=== PATIENT | female | born 1950 | race Caucasian/White ===

== ENCOUNTER 2022-12-26 16:28 | Inpatient (IN) | payer MEDICARE, BC, SELFPAY ==
[2022-12-26] VITALS (7 sets, daily range): BP systolic 126–156; BP diastolic 75–87; PULSE 82–90; RESP 18–24; TEMP 35.6–37.1; O2SAT 89–94; BMI 39.5; BMI 40.8
--- NOTE | 2022-12-26 17:06 | CRLHL7_ITS ---
For Patients: As a result of the Cures Act, medical imaging exams and procedure reports are released immediately into your electronic medical record. You may view this report before your referring provider. If you have questions, please contact your health care provider. INDICATION: pneumonia; cough; hypoxia TECHNIQUE: Chest 1 views. COMPARISON: None. FINDINGS: Lungs: Elevation of the right hemidiaphragm. Patchy bilateral airspace disease with left upper lung zone and right perihilar predominance. Vascular redistribution and indistinctness. Pleura: No pleural effusion or pneumothorax. Heart and Mediastinum: Normal heart size. Atherosclerotic aorta. Bones: No acute displaced osseous process. IMPRESSION: Patchy bilateral airspace disease with left upper lung zone and right perihilar predominance. Vascular redistribution and indistinctness. Given clinical history, findings are most concerning for multifocal infection. Superimposed edema is also considered within the differential. Recommend follow-up PA and lateral chest radiographs in 8 weeks after appropriate therapy to document resolution. Dictated by Sampson Villarreal MD @ 12/26/2022 6:17:59 PM (Electronically Signed)
--- NOTE | 2022-12-26 17:08 | ED.GENADULT ---
HPI - General Adult General Chief complaint: Shortness of Breath/Dyspnea Stated complaint: Pneumonia Time Seen by Provider: 12/26/22 16:48 History of Present Illness HPI narrative: This 72-year-old female comes in reporting a recent hospitalization because of pneumonia. She was admitted into [facility] in [place] and discharged 3 days ago. She was sent home on Augmentin. She states that this is causing GI upset. She did take a dose this morning. She presented back to a clinic and a repeat x-ray apparently showed another area of infiltrate. The patient states that she is on oxygen at home but has been hypoxic with associated confusion at times. She arrives here with oximetry at 94% with oxygen by nasal cannula. She is afebrile and pulse is in normal range. Related Data Home Medications Medication Instructions Recorded Confirmed albuterol sulfate 90 mcg/actuation 2 puff inhalation Q6H PRN dyspnea 12/26/22 12/26/22 aerosol inhaler (Ventolin HFA) amlodipine 5 mg tablet 5 mg PO Q12H 12/26/22 12/26/22 amoxicillin 875 mg-potassium 1 tab PO BID 12/26/22 12/26/22 clavulanate 125 mg tablet azithromycin 250 mg tablet 250 mg PO DIRECTED 12/26/22 12/26/22 bupropion HCl 100 mg tablet 100 mg PO BID 12/26/22 12/26/22 clonazepam 0.5 mg tablet 1 - 1.5 mg PO QPM PRN muscle spasm 12/26/22 12/26/22 clopidogrel 75 mg tablet 75 mg PO DAILY 12/26/22 12/26/22 fluoxetine 40 mg capsule 40 mg PO DAILY 12/26/22 12/26/22 hydromorphone (PF)-0.9 % NaCl .ROUTE 12/26/22 hydroxyzine HCl 25 mg tablet 25 mg PO Q6H PRN itch 12/26/22 12/26/22 ipratropium 0.5 mg-albuterol 3 mg 1 inhalation Q6H wheezing 12/26/22 (2.5 mg base)/3 mL nebulization soln levothyroxine 150 mcg tablet mcg PO 12/26/22 rosuvastatin 5 mg tablet 5 mg PO DAILY 12/26/22 12/26/22 Allergies Allergy/AdvReac Type Severity Reaction Status Date / Time capsaicin Allergy Mild Wheezing Verified 12/26/22 17:08 clindamycin Allergy Mild Nausea Verified 12/26/22 17:08 celecoxib Allergy Unknown Verified 12/26/22 17:08 levofloxacin Allergy Unknown Verified 12/26/22 17:08 duloxetine Allergy Mild Rash Uncoded 12/26/22 17:08 gabapentin Allergy Mild Hives Uncoded 12/26/22 17:08 latex Allergy Mild contact Uncoded 12/26/22 17:08 dermititis Adhesive Allergy Unknown Uncoded 12/26/22 17:08 carbamazepine Allergy Unknown Uncoded 12/26/22 17:08 cefuroxime Allergy Unknown Uncoded 12/26/22 17:08 ciprofloxacin Allergy Unknown Uncoded 12/26/22 17:08 citalopram Allergy Unknown Uncoded 12/26/22 17:08 levetiracetam Allergy Unknown Uncoded 12/26/22 17:08 methadone Allergy Unknown Uncoded 12/26/22 17:08 Review of Systems Status of ROS: Reports: 10 or more systems reviewed and unremarkable except as noted in History and below Narrative: Constitutional: No fevers, no weight gain or loss. Eyes: No discharge. No vision changes. HENT: No congestion, no sore throat, no ear pain. Cardiovascular: No chest pain, no palpitations. Respiratory: Cough. Shortness of breath. Gastrointestinal: No abdominal pain, no vomiting, no diarrhea. Genitourinary: No dysuria, no hematuria. Musculoskeletal: Normal range of motion. Skin: No rashes, no pruritis. Neurological: No dizziness, weakness, sensory change, speech change. Endo/Heme/Allergies: No bruising or bleeding. No polydipsia. Pysch: no suicidality, no anxiety, no insomnia. All other systems reviewed and are negative. [facility] Medical History (Updated 12/26/22 @ 18:59 by iCsco Barry MD) Postsurgical hypothyroidism ?E89.0 - Postprocedural hypothyroidism (ICD-10) Osteoarthritis ?M19.90 - Unspecified osteoarthritis, unspecified site (ICD-10) Obesity ?E66.9 - Obesity, unspecified (ICD-10) Myalgia and myositis HTN (hypertension) ?I10 - Essential (primary) hypertension (ICD-10) Esophageal reflux ?K21.9 - Gastro-esophageal reflux disease without esophagitis (ICD-10) Endocrine disorder ?E34.9 - Endocrine disorder, unspecified (ICD-10) Diabetic neuropathy, type II diabetes mellitus ?E11.40 - Type 2 diabetes mellitus with diabetic neuropathy, unspecified (ICD-10) Depression ?F32.A - Depression, unspecified (ICD-10) COPD (chronic obstructive pulmonary disease) ?J44.9 - Chronic obstructive pulmonary disease, unspecified (ICD-10) Asthma ?J45.909 - Unspecified asthma, uncomplicated (ICD-10) Surgical History (Updated 12/26/22 @ 17:24 by Orly Yoon RN) H/O gastric bypass ?Z98.84 - Bariatric surgery status (ICD-10) History of cholecystectomy ?Z90.49 - Acquired absence of other specified parts of digestive tract (ICD-10) H/O arthroscopic knee surgery ?Z98.890 - Other specified postprocedural states (ICD-10) Social History Smoking Status: Former smoker What tobacco products do you use: cigarettes Smoking quit date/years: >15 years ago How often do you have a drink containing alcohol: never AUDIT-C Alcohol total score: 0 Non-prescribed substance use: denies use service: No Exam Narrative: Exam Narrative: Constitutional: Well-developed, well-nourished, no acute distress. HEENT: Normocephalic, atraumatic. Neck: Normal range of motion. Nontender. Supple. Heart: Regular. No murmurs. Normal rate. Intact distal pulses. Lungs: Clear to auscultation. No chest discomfort. No wheezes, rhonchi, or rales. Normal oximetry while on nasal cannula oxygen. No use of accessory muscles for breathing. Abdomen: Normal bowel sounds. Nontender. No rebound tenderness. Genitalia: Deferred. Back: No midline tenderness. Normal range of motion. Extremities: Normal range of motion. No injury. Skin: Intact. No rash. Warm. No erythema or pallor. Neurologic: No altered sensation. No weakness. Alert and oriented. Psychiatric: No suicidality. No anxiety or depression. No insomnia. Nursing notes and vitals signs are reviewed. Const: Vital Signs, click to edit/add: Vital Signs - 24 hr 12/26/22 16:32 12/26/22 18:19 12/26/22 18:30 Temperature 96.1 F L Pulse Rate 89 89 Pulse Rate [Right Pulse Oximeter] 90 Respiratory Rate 24 Blood Pressure [Ri ght Upper Arm] 156/77 H Pulse Oximetry 94 92 91 Oxygen Delivery Me thod Nasal Cannula Oxygen Flow Rate 12/26/22 18:31 Temperature Pulse Rate Pulse Rate [Right Pulse Oximeter] Respiratory Rate Blood Pressure [Ri ght Upper Arm] Pulse Oximetry 89 Oxygen Delivery Me thod Nasal Cannula Oxygen Flow Rate 3 Course Vital Signs Vital signs: Initial Vital Signs Temperature 96.1 F L 12/26/22 16:32 Temperature Source Temporal Artery Scan 12/26/22 16:32 Pulse Rate 90 12/26/22 16:32 Respiratory Rate 24 12/26/22 16:32 Blood Pressure 156/77 H 12/26/22 16:32 Blood Pressure Mean 103 12/26/22 16:32 Blood Pressure Position Sitting 12/26/22 16:32 Pulse Oximetry 94 12/26/22 16:32 Oxygen Delivery Method Nasal Cannula 12/26/22 16:32 Vital Signs Temperature 96.1 F L 12/26/22 16:32 Pulse Rate 90 12/26/22 16:32 Respiratory Rate 24 12/26/22 16:32 Blood Pressure 156/77 H 12/26/22 16:32 Pulse Oximetry 94 12/26/22 16:32 Oxygen Delivery Method Nasal Cannula 12/26/22 16:32 Temperature 96.1 F L 12/26/22 16:32 Pulse Rate 89 12/26/22 18:30 Respiratory Rate 24 12/26/22 16:32 Blood Pressure 156/77 H 12/26/22 16:32 Pulse Oximetry 89 12/26/22 18:31 Oxygen Delivery Method Nasal Cannula 12/26/22 18:31 Oxygen Flow Rate 3 12/26/22 18:31 Medical Decision Making MDM Narrative Medical decision making narrative: This 72-year-old female has multifocal infiltrates suspicious for pneumonia. She was hospitalized and discharged toward the end of this past week. Since then she has been taking Augmentin which is not sit well with her GI tract. Chest x-ray today does show multifocal infiltrates. She is on nasal cannula oxygen and at 3 L was noted to have oximetry at 89%. She does use oxygen at home but states that at night it comes off and then she becomes very confused. Her white count is normal today. Her vital signs were not triggering SIRS criteria to do septic workup. I did draw blood cultures. The patient did receive an IV dose of Zosyn. I spoke with the hospitalist stock control clerk, Dr. Mcclelland, who will arrange for her admission. Lab Data Labs: Lab Results 12/26/22 Range/Units 17:45 WBC 8.18 (4.50-11.00) K/uL RBC 4.16 (4.00-5.20) m/uL Hgb 11.3 L (12.0-16.0) gm/dL Hct 35.8 (33.0-51.0) % MCV 86 (80-100) fL MCH 27 (26-34) pg MCHC 32 (32-36) gm/dL RDW Coeff of Joey 13.8 (11.5-15.5) % Plt Count 201 (140-440) K/uL Neut % (Auto) 73.4 H (42.0-72.0) % Lymph % (Auto) 17.1 L (20-44) % [place] % (Auto) 7.9 (0.0-11.0) % Eos % (Auto) 1.0 (0.0-7.0) % Baso % (Auto) 0.5 (0.0-3.0) % Neut # (Auto) 6.00 (1.7-7.0) K/uL Lymph # (Auto) 1.40 (0.90-2.90) K/uL [place] # (Auto) 0.60 (0.00-0.90) K/UL Eos # (Auto) 0.08 (0.00-0.50) K/uL Baso # (Auto) 0.04 (0.00-0.30) K/uL Sodium 133 L (135-149) mmol/L Potassium 3.6 (3.6-5.1) mmol/L Chloride 95 L (96-114) mmol/L Carbon Dioxide 34 H (20-32) mmol/L BUN 7 (7-30) mg/dL Creatinine 0.5 (0.5-1.5) mg/dL Estimated Creat Clear 52.05 Estimated GFR 100 ml/min Glucose 116 H (60-115) mg/dL Calcium 8.9 (8.4-10.6) mg/dL Imaging Data Chest x-ray: Radiologist's impression: Patchy bilateral airspace disease with left upper lung zone and right perihilar predominance. Vascular redistribution and indistinctness. Given clinical history, findings are most concerning for multifocal infection. Superimposed edema is also considered within the differential. Recommend follow-up PA and lateral chest radiographs in 8 weeks after appropriate therapy to document resolution. ECG Data Attestation: I personally reviewed and interpreted this ECG as follows: Interpretation: Normal sinus rhythm. Rate is 86 beats per minute. There are no ST or T-wave abnormalities. Discharge Plan Discharge Clinical Impression: Pneumonia Prescriptions: No Action fluoxetine 40 mg capsule 40 mg PO DAILY ipratropium-albuterol 0.5 mg-3 mg(2.5 mg base)/3 mL solution for nebulization 1 INHALATION Q6H azithromycin 250 mg tablet 250 mg PO DIRECTED clonazepam 0.5 mg tablet 1 - 1.5 mg PO QPM PRN (Reason: muscle spasm) clopidogrel 75 mg tablet 75 mg PO DAILY amlodipine 5 mg tablet 5 mg PO Q12H bupropion HCl 100 mg tablet 100 mg PO BID levothyroxine 150 mcg tablet PO hydroxyzine HCl 25 mg tablet 25 mg PO Q6H PRN (Reason: itch) albuterol sulfate [Ventolin HFA] 90 mcg/actuation HFA aerosol inhaler 2 puff inhalation Q6H PRN (Reason: dyspnea) amoxicillin-pot clavulanate 875-125 mg tablet 1 tab PO BID rosuvastatin 5 mg tablet 5 mg PO DAILY hydromorphone (PF)-0.9 % NaCl .ROUTE Patient Comments: continuous infusion and has marcan mixed with hydromorphine Follow Up/Referrals: Eleanor Hanley MD [Staff Physician] -
[2022-12-26 18:01] LABS: Basophils Absolute Auto 0.04 K/uL (0.00-0.30); Basophils Percent Auto 0.5 % (0.0-3.0); Eosinophils Absolute Auto 0.08 K/uL (0.00-0.50); Hematocrit 35.8 % (33.0-51.0); Hemoglobin* 11.3 gm/dL (12.0-16.0); Immature Granulocytes Abs Auto 0.01 K/uL (0.00-0.30); Immature Granulocytes Pct Auto 0.1 %; Lymphocytes Percent Auto 17.1 % (20-44); Mean Corpuscular HGB Conc 32 gm/dL (32-36); Mean Corpuscular Hemoglobin 27 pg (26-34); Mean Corpuscular Volume 86 fL (80-100); Monocytes Percent Auto 7.9 % (0.0-11.0); Neutrophils Percent Auto 73.4 % (42.0-72.0); Platelet Count* 201 K/uL (140-440); RDW Coefficient of Variation % 13.8 % (11.5-15.5); Red Blood Count 4.16 m/uL (4.00-5.20); White Blood Count* 8.18 K/uL (4.50-11.00)
[2022-12-26 18:03] LABS: Slide Review Reflex No
[2022-12-26 18:17] LABS: Chloride* 95 mmol/L (96-114); Potassium* 3.6 mmol/L (3.6-5.1); Sodium* 133 mmol/L (135-149)
[2022-12-26 18:19] LABS: Creatinine* 0.5 mg/dL (0.5-1.5); Est. Creatinine Clearance* 52.05; Estimated Glomerular Filt Rate 100 ml/min
[2022-12-26 18:20] LABS: Blood Urea Nitrogen* 7 mg/dL (7-30); Calcium* 8.9 mg/dL (8.4-10.6); Carbon Dioxide* 34 mmol/L (20-32); Glucose* 116 mg/dL (60-115)
[2022-12-26] MEDS: PIPERACILLIN/TAZOBACTAM 3.375 GM in 0.9 % SODIUM CHLORIDE Mini-bag 100 ML IVPB (19:26)
[2022-12-26] MEDS: ONDANSETRON 2 MG/ML inj 4 MG IVP (19:26)
[2022-12-26 19:42] LABS: Lab Add On Test New Spec Needed
[2022-12-26 19:56] LABS: HCO3 VBG 34 mmol/L (21-28); PCO2 VBG 54 mmHG (40-50); PO2 VBG 30.4 mmHG (25-47); pH VBG 7.399 (7.32-7.43)
[2022-12-26 20:34] LABS: Procalcitonin* 0.09 ng/mL (<0.50)
--- NOTE | 2022-12-26 21:15 | PM.IMHP1 ---
Hospitalist- H&P: HPI History of Present Illness Date Seen: 12/26/22 Chief complaint: Pneumonia Narrative: Aura Joe is a 72 year old female who presented to the emergency room for persistent illness. Patient was hospitalized at [facility] from 12/01-12/06 for a right-sided pneumonia, never feels that she fully recovered from this upon discharge home. Over the past 7-10 days, she has noted persistent cough and weakness. She was seeing approximately 4 days ago and placed on Augmentin, unsure if this is helpful (and causing GI distress). Using nebs with relief. She has continued to have intermittent sputum production, no hemoptysis. No chest pain. No objective fevers, although she has noted intermittent diaphoresis. Last night, she noted an oxygen saturation in the high 70s%; she then put on her home oxygen (typically uses sparingly). Today, she was seen at an urgent care and Azithromycin was added to her regimen; she felt that she was unable to tolerate GI affects for further p.o. antibiotics and presented to our emergency room. ER Course and Findings: - no acute abnormalities on EKG - patchy bilateral airspace disease with left upper lung zone and right perihilar predominant, most concerning for multifocal infection - reassuring labs, including normal procalcitonin - Zosyn initiated Patient's history updated below. Notably has a history of COPD on chart review; patient does not believe she has this diagnosis. She is scheduled to see Pulmonology in the future. PCP is Dr. Adin Salazar at [facility] in [place]. Review of Systems Status of ROS: Reports: 10 or more systems reviewed and unremarkable except as noted in History and below Narrative: - no sick contacts - weight has been stable - intrathecal pump in place for Dilaudid administration, unsure if this is helpful. Sees [facility] in [place] for this medication in addition to Oxycodone (120-150 tabs/month) - history of CVA in approximately 2020; residual R sided facial droop - uses a cane for ambulation at home, has a hoveround for longer distances - no skin concerns - no GI concerns, typically alternates between constipation and diarrhea given chronic narcotic use - history of recurrent UTIs in the past; resolved with daily probiotic and cranberry supplementation [facility] Medical History (Updated 12/26/22 @ 21:42 by Bebe Mcclelland MD) Hypothyroidism ?E03.9 - Hypothyroidism, unspecified (ICD-10) Non-insulin dependent diabetes mellitus Chronic pain syndrome ?G89.4 - Chronic pain syndrome (ICD-10) Postsurgical hypothyroidism ?E89.0 - Postprocedural hypothyroidism (ICD-10) Osteoarthritis ?M19.90 - Unspecified osteoarthritis, unspecified site (ICD-10) Obesity ?E66.9 - Obesity, unspecified (ICD-10) Myalgia and myositis HTN (hypertension) ?I10 - Essential (primary) hypertension (ICD-10) Esophageal reflux ?K21.9 - Gastro-esophageal reflux disease without esophagitis (ICD-10) Endocrine disorder ?E34.9 - Endocrine disorder, unspecified (ICD-10) Diabetic neuropathy, type II diabetes mellitus ?E11.40 - Type 2 diabetes mellitus with diabetic neuropathy, unspecified (ICD-10) Depression ?F32.A - Depression, unspecified (ICD-10) COPD (chronic obstructive pulmonary disease) ?J44.9 - Chronic obstructive pulmonary disease, unspecified (ICD-10) Asthma ?J45.909 - Unspecified asthma, uncomplicated (ICD-10) Surgical History (Updated 12/26/22 @ 19:38 by Bebe Mcclelland MD) H/O: hysterectomy ?Z90.710 - Acquired absence of both cervix and uterus (ICD-10) H/O gastric bypass ?Z98.84 - Bariatric surgery status (ICD-10) History of cholecystectomy ?Z90.49 - Acquired absence of other specified parts of digestive tract (ICD-10) H/O arthroscopic knee surgery ?Z98.890 - Other specified postprocedural states (ICD-10) Social History (Updated 12/26/22 @ 21:33 by Bebe Mcclelland MD) Narrative: Patient lives with her Alejandro (medical decision maker) in [place]. 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 Quit smoking in approximately 1999, no concerning alcohol use. What is your current living situation: I presently have a place to live Problems where you live: no known problems Problems where you live details: NONE In the past 12 months, utilities in danger of being shut off: no In the past 12 mos, have been you worried that your food would run out before you had money to buy more?: never true In the past 12 mos, the food you bought just didn't last and you didn't have money to buy more?: never true Highest level of school completed/degree received: Associate degree: academic program Smoking Status: Former smoker What tobacco products do you use: cigarettes Smoking quit date/years: >15 years ago How often do you have a drink containing alcohol: never AUDIT-C Alcohol total score: 0 Non-prescribed substance use: denies use Caffeine: Yes (COUPLE CUPS COFFEE) How often does anyone, including family, friends and others, physically hurt you: How often does anyone, including family, friends and others, insult or talk down to you: How often does anyone, including family, friends and others, threaten you with harm: How often does anyone, including family, friends and others, scream or curse at you: service: No Meds Home Medications and Allergies Home Medications Medication Instructions Recorded Confirmed Type albuterol sulfate 90 mcg/actuation 2 puff inhalation Q6H PRN dyspnea 12/26/22 12/26/22 History aerosol inhaler (Ventolin HFA) amlodipine 5 mg tablet 5 mg PO Q12H 12/26/22 12/26/22 History amoxicillin 875 mg-potassium 1 tab PO BID 12/26/22 12/26/22 History clavulanate 125 mg tablet azithromycin 250 mg tablet 250 mg PO DIRECTED 12/26/22 12/26/22 History bupropion HCl 100 mg tablet 100 mg PO BID 12/26/22 12/26/22 History clonazepam 0.5 mg tablet 1 - 1.5 mg PO QPM PRN muscle spasm 12/26/22 12/26/22 History clopidogrel 75 mg tablet 75 mg PO DAILY 12/26/22 12/26/22 History famotidine 40 mg tablet 40 mg PO DAILY 12/26/22 12/26/22 History fluoxetine 40 mg capsule 40 mg PO DAILY 12/26/22 12/26/22 History hydromorphone (PF)-0.9 % NaCl .ROUTE 12/26/22 History hydroxyzine HCl 25 mg tablet 25 mg PO Q6H PRN itch 12/26/22 12/26/22 History ipratropium 0.5 mg-albuterol 3 mg 1.5 ml inhalation Q6H wheezing 12/26/22 12/26/22 History (2.5 mg base)/3 mL nebulization soln levothyroxine 150 mcg tablet 150 mcg PO DAILY 12/26/22 12/26/22 History oxycodone 10 mg tablet 5 - 10 mg PO Q4-6H PRN 12/26/22 12/26/22 History rosuvastatin 5 mg tablet 5 mg PO DAILY 12/26/22 12/26/22 History Home Medication Comments: Updated with patient - on Plavix for CVA history Allergies Allergy/AdvReac Type Severity Reaction Status Date / Time capsaicin Allergy Mild Wheezing Verified 12/26/22 17:08 clindamycin Allergy Mild Nausea Verified 12/26/22 17:08 celecoxib Allergy Unknown Verified 12/26/22 17:08 levofloxacin Allergy Unknown Verified 12/26/22 17:08 duloxetine Allergy Mild Rash Uncoded 12/26/22 17:08 gabapentin Allergy Mild Hives Uncoded 12/26/22 17:08 latex Allergy Mild contact Uncoded 12/26/22 17:08 dermititis Adhesive Allergy Unknown Uncoded 12/26/22 17:08 carbamazepine Allergy Unknown Uncoded 12/26/22 17:08 cefuroxime Allergy Unknown Uncoded 12/26/22 17:08 ciprofloxacin Allergy Unknown Uncoded 12/26/22 17:08 citalopram Allergy Unknown Uncoded 12/26/22 17:08 levetiracetam Allergy Unknown Uncoded 12/26/22 17:08 methadone Allergy Unknown Uncoded 12/26/22 17:08 Exam Narrative: Exam Narrative: GEN: Alert and oriented, answering questions appropriately HEENT: EOMIs bilaterally, no scleral icterus. Edentulous, + thrush CV: RRR, + holosystolic murmur heard across precordium R: Expiratory wheezing throughout, intermittent coughing paroxysms during exam Ext: 2+ edema BLE Skin: Scattered bruising of lower extremities Neuro: Mild right facial droop noted, no resting tremor, gait not observed Psych: Appropriate Const: Vital Signs, click to edit/add: Vital Signs - 24 hr 12/26/22 16:32 12/26/22 18:19 12/26/22 18:30 Temperature 96.1 F L Pulse Rate 89 89 Pulse Rate [Left R adial] Pulse Rate [Right Pulse Oximeter] 90 Respiratory Rate 24 Blood Pressure [Le ft Arm] Blood Pressure [Ri ght Upper Arm] 156/77 H Pulse Oximetry 94 92 91 Oxygen Delivery Me thod Nasal Cannula Oxygen Flow Rate 12/26/22 18:31 12/26/22 20:14 12/26/22 20:14 Temperature 98.7 F Pulse Rate Pulse Rate [Left R adial] 90 Pulse Rate [Right Pulse Oximeter] Respiratory Rate 24 24 Blood Pressure [Le ft Arm] 126/75 Blood Pressure [Ri ght Upper Arm] Pulse Oximetry 89 94 94 Oxygen Delivery Me thod Nasal Cannula Nasal Cannula Nasal Cannula Oxygen Flow Rate 3 3 3 Hospitalist - H&P: Result Labs Labs: Short CBC 12/26/22 Range/Units 17:45 WBC 8.18 (4.50-11.00) K/uL Hgb 11.3 L (12.0-16.0) gm/dL Hct 35.8 (33.0-51.0) % Plt Count 201 (140-440) K/uL BMP 12/26/22 17:45 Sodium 133 L Potassium 3.6 Chloride 95 L Carbon Dioxide 34 H BUN 7 Creatinine 0.5 Glucose 116 H Calcium 8.9 Assessment and Plan Assessment and plan (1) Acute respiratory failure with hypoxia: Problem comment: - multifactorial: PNA, COPD exacerbation, possible CHF - Zosyn, steroids, nebs, TTE to assess LVEF - RT referral - given elevated CO2, will utilize supplemental oxygen and take care to not worsen hypercarbia with goal O2 saturation 88-90% Status: Acute (2) Pneumonia: Problem comment: - appears to be multifocal on ED imaging. Procalcitonin within normal limits, reassuring - given recent hospitalization, will cover with Zosyn (12/26) Status: Acute (3) Thrush: Problem comment: - multiple recent antibiotics, no history of immunosuppression - treat with Nystatin swish/swallow Status: Acute (4) COPD (chronic obstructive pulmonary disease): Problem comment: - Patient unsure if this is a true diagnosis; has outpatient pulmonology follow-up scheduled - will treat with steroids and nebs given wheezing on admission Status: Acute (5) Chronic pain syndrome: Problem comment: - on Dilaudid via intrathecal pain pump and QID Oxycodone - follows with [facility] in [place] Status: Acute (6) Non-insulin dependent diabetes mellitus: Problem comment: - last A1C 5.7 in 11/2022 - follow BG in morning labs, prn accuchecks for symptoms of hyper/hypoglycemia Status: Acute Plan - per above - Lovenox for ppx - patient requests FULL CODE status at this time, never wants to be on a machine jail
[2022-12-26] MEDS: METHYLPREDNISOLONE SOD SUCC 40 MG/ML IVP (21:35)
[2022-12-26] MEDS: OXYCODONE 5 MG TABLET PO (21:36)
[2022-12-26] MEDS: IPRAT-ALBUT 0.5-2.5 MG/3 ML NEB 1 NEB IH (21:36)
[2022-12-26] MEDS: AMLODIPINE 5 MG TABLET PO (21:36)
[2022-12-26] MEDS: buPROPion HCL 100 MG TAB.SR.12H PO (21:36)
[2022-12-26] MEDS: SODIUM CHLORIDE 0.9 % (FLUSH) 10 ML SYRINGE 5 ML IVF (21:36)
[2022-12-27] VITALS (11 sets, daily range): BP systolic 103–148; BP diastolic 62–114; PULSE 77–94; RESP 12–116; TEMP 36.2–36.7; O2SAT 89–93
[2022-12-27] MEDS: SENNOSIDES/DOCUSATE TABLET 1 TAB PO (00:01)
[2022-12-27] MEDS: clonazePAM 0.5 MG TABLET 1 MG PO (00:01)
[2022-12-27] MEDS: FAMOTIDINE 20 MG TABLET 40 MG PO ×2 (01:08→23:29)
[2022-12-27] MEDS: PIPERACILLIN/TAZOBACTAM 3.375 GM in 0.9 % SODIUM CHLORIDE Mini-bag 100 ML IVPB ×4 (01:09→18:40)
[2022-12-27] MEDS: IPRAT-ALBUT 0.5-2.5 MG/3 ML NEB 1 NEB IH ×4 (03:24→21:00)
--- NOTE | 2022-12-27 05:21 | PC.NURSE ---
ADMISSION NOTE: Pt admitted for PNX to room 256, up from the ER on 3L O2 PNC with oxygen saturation of 94%. Pt with wheezes, DuoNeb given with relief. Pt reports SOB at exertion, better at rest. Denies N/V and CP. Afebrile. Pt very fatigued, falling asleep during conversation and assessments. Up SBA and steady on her feet. Incontinent of urine x1, geoffrey care provided.
--- NOTE | 2022-12-27 06:06 | PC.NURSE ---
Patient drowsy during conversation/assessment. Patient is oriented but has difficulty holding conversation due to drowsiness. Aura will begin answering a question and will get 2-3 words out and then her head will fall back and her eyes roll back and then her eyes close. She will then pop her head back up and begin talking about a new subject. Patient reports intermittent productive cough, quality analyst/technical writer did not observe cough during this shift. Lung sounds diminished in bases with fine crackles in bases. Aura reports that she had spent several days in [facility] for pneumonia, she went home on antibiotics and did not feel like she was improving. She reports that oral antibiotics give her loose stools and that she didn't feel like she was tolerating them well. Patient did request PRN senna for constipation. Patient removed nasal cannula when she ambulated to the bathroom, after patient walked to and from the bathroom quality analyst/technical writer checked O2 sats and they were 91% on room air. Patient observed to be a mouth breather with head hyperextended. Denies any shortness of breath with exertion. At 2335 patient requested Klonopin, she also requested Pepcid as she normally takes that at bedtime. Time for pepcid adjusted to bedtime.
[2022-12-27 06:32] LABS: HCO3 VBG 34 mmol/L (21-28); PO2 VBG 24.7 mmHG (25-47)
[2022-12-27 06:34] LABS: PCO2 VBG 62 mmHG (40-50)
[2022-12-27] MEDS: OMEPRAZOLE 20 MG CAPSULE DR 40 MG PO (06:35)
[2022-12-27 06:37] LABS: Basophils Absolute Auto 0.01 K/uL (0.00-0.30); Basophils Percent Auto 0.2 % (0.0-3.0); Hematocrit 33.1 % (33.0-51.0); Hemoglobin* 10.3 gm/dL (12.0-16.0); Lymphocytes Percent Auto 9.6 % (20-44); Mean Corpuscular HGB Conc 31 gm/dL (32-36); Mean Corpuscular Hemoglobin 27 pg (26-34); Mean Corpuscular Volume 88 fL (80-100); Monocytes Percent Auto 1.7 % (0.0-11.0); Neutrophils Percent Auto 88.5 % (42.0-72.0); Platelet Count* 184 K/uL (140-440); RDW Coefficient of Variation % 13.7 % (11.5-15.5); Red Blood Count 3.78 m/uL (4.00-5.20)
[2022-12-27 06:38] LABS: Slide Review Reflex No
[2022-12-27 06:56] LABS: Chloride* 97 mmol/L (96-114); Potassium* 4.4 mmol/L (3.6-5.1); Sodium* 136 mmol/L (135-149)
[2022-12-27 06:58] LABS: Creatinine* 0.5 mg/dL (0.5-1.5); Est. Creatinine Clearance* 52.05; Estimated Glomerular Filt Rate 100 ml/min
--- NOTE | 2022-12-27 06:58 | PC.NURSE ---
Filter Assembler entered room at 0630 with Chantelle Zamora RN to administer oral and IV medication. Patient in bed sleeping, information writer attempted to wake to patient name, patient did not wake to verbal stimuli and light shaking. Filter Assembler did moderate pressure sternal rub for 30+ seconds before patient woke up. Patient ambulated to bathroom with walker and back into bed. Aura reports feeling dry and would like either IV fluids or she will have her bring bottled water. Filter Assembler left room after settling patient, 5 minutes after leaving room patient placed call light on requesting pain medication.
[2022-12-27 06:59] LABS: Blood Urea Nitrogen* 7 mg/dL (7-30); Calcium* 8.3 mg/dL (8.4-10.6); Carbon Dioxide* 35 mmol/L (20-32); Glucose* 174 mg/dL (60-115)
[2022-12-27 07:16] LABS: Procalcitonin* 0.07 ng/mL (<0.50)
[2022-12-27] MEDS: predniSONE 20 MG TABLET 40 MG PO (08:07)
[2022-12-27] MEDS: AMLODIPINE 5 MG TABLET PO ×2 (08:07→21:07)
[2022-12-27] MEDS: ACETAMINOPHEN 325 MG TABLET 975 MG PO ×2 (08:07→14:13)
[2022-12-27] MEDS: LIDOCAINE 5% PATCH 1 PATCH TRANSDERMA ×2 (09:10→09:11)
[2022-12-27] MEDS: LEVOTHYROXINE 75 MCG TABLET 150 MCG PO (09:32)
[2022-12-27] MEDS: FLUOXETINE HCL 20 MG CAPSULE 40 MG PO (09:32)
[2022-12-27] MEDS: CLOPIDOGREL 75 MG TABLET PO (09:32)
[2022-12-27] MEDS: SODIUM CHLORIDE 0.9 % (FLUSH) 10 ML SYRINGE 5 ML IVF (09:33)
[2022-12-27] MEDS: ROSUVASTATIN CALCIUM 10 MG TABLET 5 MG PO (09:33)
[2022-12-27] MEDS: buPROPion HCL 100 MG TAB.SR.12H PO ×2 (09:34→21:09)
--- NOTE | 2022-12-27 10:31 | PM.IMPN1 ---
Progress Note: A&P Assessment and plan (1) Acute respiratory failure with hypoxia: Problem details: - multifactorial: PNA, suspect aspiration from obtundation overnight due to overmedication with opioid/benzo combo, COPD exacerbation, possible CHF - Zosyn, steroids, nebs, TTE to assess LVEF - RT referral - given elevated CO2, will utilize supplemental oxygen and take care to not worsen hypercarbia with goal O2 saturation 88-90% Status: Acute (2) Pneumonia: Problem details: - appears to be multifocal on ED imaging. Procalcitonin within normal limits, reassuring - given recent hospitalization, will cover with Zosyn started 12/26 - Recommendations from radiologist about CXR findings: Recommend follow-up PA and lateral chest radiographs in 8 weeks after appropriate therapy to document resolution. Status: Acute (3) COPD (chronic obstructive pulmonary disease): Problem details: - Patient unsure if this is a true diagnosis; has outpatient pulmonology follow-up scheduled - will treat with steroids and nebs given wheezing on admission Status: Acute (4) Obtundation: Problem details: Suspect overmedication with opioid/benzo combo, decrease these meds, monitor for withdrawal Status: Acute (5) Apnea: Problem details: suspect sleep apnea and overmedication with opioid/benzo combo Status: Acute (6) Non-insulin dependent diabetes mellitus: Problem details: - last A1C 5.7 in 11/2022 - BG's are within inpatient goal 140-180, continue prn accuchecks Status: Acute (7) Thrush: Problem details: - multiple recent antibiotics, no history of immunosuppression - Continue Nystatin swish/swallow Status: Acute (8) Chronic pain syndrome: Problem details: - on Dilaudid via intrathecal pain pump and QID Oxycodone, decrease oxycodone dose due to overnight obtundation - follows with [facility] in [place] Status: Acute Plan Start senna and miralax for constipation Add lidocaine patches, ice and heat for pain. Subjective Time Seen by Provider: 07:35 Date Seen: 12/27/22 Interval history: Patient was having frequent apneic spells and was difficult to wake overnight with nursing staff having to give 30 second sternal rubs to awaken her. I spoke with Leticia about this and my concern that she is overmedicated at night. I explained that with apneic spells and unresponsiveness to that level, it is dangerous to be taking the current doses of oxycodone combined with clonazepam on top of her dilaudid pump, that her morning CO2 level was high and had risen from yesterday's value and was further indication that she is overmedicated at night and this could lead to . 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 She said she has an appointment with Dr. Romero from pulmonology and a sleep study to address these concerns. She tells me that she recently had doses of oxycodone and clonazepam decreased and she doesn't want them decreased any further because she doesn't want to have a grand mal seizure, which she has had before. Leticia says she also has an appointment with ENT coming up because she has been having vocal cord inflammation and hoarseness from GERD, even though she sleeps in an upright position each night. When I was speaking with her, her nurse came into the room. After I left the room, I could hear Leticia yelling at her nurse asking for pain medication right now, and that she wanted her usual dose of it. Later this morning, her nurse found pills in [facility] room. We do not know if she took any of these. We have sent them to pharmacy for identification. Exam Narrative: Exam Narrative: General: No acute distress. Awake, alert, oriented x3. Sitting up and eating breakfast. No pallor. No jaundice. Disheveled. Morbidly obese. Oropharynx: Clear. Mucous membranes moist. Cardiovascular: Regular rate and rhythm. Holosystolic murmur noted. Respiratory: Poor inspiratory effort, no crackles or wheezes. Abdomen: Bowel sounds present. Soft, nondistended, nontender. Const: Vital Signs, click to edit/add: Vital Signs - 24 hr 12/26/22 16:32 12/26/22 18:19 12/26/22 18:30 Temperature 96.1 F L Pulse Rate 89 89 Pulse Rate [Left R adial] Pulse Rate [Right Pulse Oximeter] 90 Respiratory Rate 24 Blood Pressure [Le ft Arm] Blood Pressure [Ri ght Upper Arm] 156/77 H Pulse Oximetry 94 92 91 Oxygen Delivery Me thod Nasal Cannula Oxygen Flow Rate 12/26/22 18:31 12/26/22 20:14 12/26/22 20:14 Temperature 98.7 F Pulse Rate Pulse Rate [Left R adial] 90 Pulse Rate [Right Pulse Oximeter] Respiratory Rate 24 24 Blood Pressure [Le ft Arm] 126/75 Blood Pressure [Ri ght Upper Arm] Pulse Oximetry 89 94 94 Oxygen Delivery Me thod Nasal Cannula Nasal Cannula Nasal Cannula Oxygen Flow Rate 3 3 3 12/26/22 22:40 12/26/22 23:00 12/26/22 23:00 Temperature Pulse Rate 82 Pulse Rate [Left R adial] Pulse Rate [Right Pulse Oximeter] Respiratory Rate 18 18 Blood Pressure [Le ft Arm] Blood Pressure [Ri ght Upper Arm] Pulse Oximetry 91 Oxygen Delivery Me thod Room Air Oxygen Flow Rate 3 12/26/22 23:00 12/27/22 00:39 12/27/22 03:00 Temperature 98.1 F 97.6 F Pulse Rate 77 Pulse Rate [Left R adial] 87 88 Pulse Rate [Right Pulse Oximeter] Respiratory Rate 18 12 Blood Pressure [Le ft Arm] 136/87 124/76 Blood Pressure [Ri ght Upper Arm] Pulse Oximetry 91 91 Oxygen Delivery Me thod Nasal Cannula Nasal Cannula Oxygen Flow Rate 3 3 12/27/22 07:58 Temperature 97.8 F Pulse Rate Pulse Rate [Left R adial] 94 Pulse Rate [Right Pulse Oximeter] Respiratory Rate 18 Blood Pressure [Le ft Arm] 148/114 H Blood Pressure [Ri ght Upper Arm] Pulse Oximetry 93 Oxygen Delivery Me thod Room Air Oxygen Flow Rate Labs Labs: Laboratory Results - last 24 hr 12/26/22 12/26/22 12/26/22 17:45 19:39 19:50 WBC 8.18 RBC 4.16 Hgb 11.3 L Hct 35.8 MCV 86 MCH 27 MCHC 32 RDW Coeff of Joey 13.8 Plt Count 201 Neut % (Auto) 73.4 H Lymph % (Auto) 17.1 L Jackson % (Auto) 7.9 Eos % (Auto) 1.0 Baso % (Auto) 0.5 Neut # (Auto) 6.00 Lymph # (Auto) 1.40 Jackson # (Auto) 0.60 Eos # (Auto) 0.08 Baso # (Auto) 0.04 VBG pH 7.399 VBG pCO2 54 H VBG pO2 30.4 VBG HCO3 34 H Sodium 133 L Potassium 3.6 Chloride 95 L Carbon Dioxide 34 H BUN 7 Creatinine 0.5 Estimated Creat Clear 52.05 Estimated GFR 100 Glucose 116 H Calcium 8.9 Procalcitonin 0.09 Lab Acknowledgement New Spec Needed 12/27/22 06:02 WBC 4.60 RBC 3.78 L Hgb 10.3 L Hct 33.1 MCV 88 MCH 27 MCHC 31 L RDW Coeff of Joey 13.7 Plt Count 184 Neut % (Auto) 88.5 H Lymph % (Auto) 9.6 L Jackson % (Auto) 1.7 Eos % (Auto) 0.0 Baso % (Auto) 0.2 Neut # (Auto) 4.10 Lymph # (Auto) 0.40 L Jackson # (Auto) 0.10 Eos # (Auto) 0.00 Baso # (Auto) 0.01 VBG pH 7.340 VBG pCO2 62 H* VBG pO2 24.7 L VBG HCO3 34 H Sodium 136 Potassium 4.4 Chloride 97 Carbon Dioxide 35 H BUN 7 Creatinine 0.5 Estimated Creat Clear 52.05 Estimated GFR 100 Glucose 174 H Calcium 8.3 L Procalcitonin 0.07 Lab Acknowledgement
[2022-12-27] MEDS: polyethylene glycoL 3350 17 GM PACK PO (11:15)
[2022-12-27] MEDS: guaiFENesin 100 MG/ML CUP PO ×2 (11:15→21:04)
[2022-12-27] MEDS: BENZOCAINE/MENTHOL 1 EACH LOZENGE MUCOUS MEM (11:16)
[2022-12-27] MEDS: SENNOSIDES/DOCUSATE TABLET 2 TAB PO (11:23)
[2022-12-27] MEDS: OXYCODONE 5 MG TABLET PO ×2 (11:59→18:39)
[2022-12-27] MEDS: 0.9 % SODIUM CHLORIDE 250 ml IV (12:52)
[2022-12-27] MEDS: hydrOXYzine pamoate 25 MG CAPSULE PO (13:59)
--- NOTE | 2022-12-27 14:12 | REH.OT ---
Orders received for PT/OT eval and treat. Patient asked for therapy to see her tomorrow as she was too tired to participate today.
--- NOTE | 2022-12-27 15:02 | PC.NURSE ---
End of shift-- Pt has been alert and oriented, but forgetful today. Pt is very anxious, speaks forcefully and continually and is very fixated on her medications. VSS and pt is afebrile. SPO2 maintained >88% on 2L per n.c. while awake and per OxyMask while sleeping. She c/o generalized pain and pain in her knees which she rated from 6-8 out of 10 today and she was given Tylenol, Oxycodone, Lidocaine patches, Vistaril and ice packs today with stated partial relief. LS diminished throughout, but difficult to assess r/t poor patient cooperation. Productive cough with yellowish sputum noted. Telemetry shows NSR with a 1st degree AV block. She denied nausea and ate a regular soft diet with no difficulty. Pt does not have any teeth. She was given Miralax, senna and ate prunes and drank prune juice today with no results. She was up to the BR with SBA and walker and tolerated it well. Pt did attempt to use the walker backwards at one point, but did appear steady on her feet. She c/o acid reflux this afternoon, in addition to thrush. Spoke to Dr. Mcclelland and orders for Maalox and Nystatin were obtained. Report to CALLIE Guadalupe and CALLIE Rios. All questions answered.
[2022-12-27] MEDS: MAG HYDROX/ALUMINUM HYD/SIMETH 30 ML ORAL.SUSP 15 ML PO ×2 (16:55→23:27)
[2022-12-27] MEDS: ENOXAPARIN 40 MG/0.4 ML INJ SUBCUT (21:09)
[2022-12-27] MEDS: clonazePAM 0.5 MG TABLET PO (22:07)
--- NOTE | 2022-12-27 22:55 | PC.NURSE ---
End of Shift Summary: Pt ambulating with walker and SBA, tolerating activity well. New 22g IV placed in left wrist, previous left IV fell out during echocardiogram and right AC became dislodged when setting up for dinner per pt. Pain rated between 5-7/10, improved with oxycodone. O2 sats remained between 88-92% RA.
[2022-12-27] MEDS: NYSTATIN POWDER 1 APPLIC TOPICAL (23:30)
[2022-12-28 00:30] VITALS: PULSE 75
[2022-12-28] MEDS: PIPERACILLIN/TAZOBACTAM 3.375 GM in 0.9 % SODIUM CHLORIDE Mini-bag 100 ML IVPB ×2 (00:50→06:47)
[2022-12-28] MEDS: SENNOSIDES/DOCUSATE TABLET 2 TAB PO (01:02)
[2022-12-28] MEDS: hydrOXYzine pamoate 25 MG CAPSULE PO (01:10)
[2022-12-28] MEDS: OXYCODONE 5 MG TABLET PO ×3 (01:30→09:53)
[2022-12-28] MEDS: IPRAT-ALBUT 0.5-2.5 MG/3 ML NEB 1 NEB IH ×2 (02:47→09:20)
[2022-12-28 03:00] VITALS: BP 117/60; PULSE 80; RESP 18; TEMP 36.4; O2SAT 89
[2022-12-28] MEDS: ACETAMINOPHEN 325 MG TABLET 975 MG PO (03:33)
--- NOTE | 2022-12-28 06:17 | PC.NURSE ---
Addendum entered and electronically signed by Mulu Galdamez RN 12/28/22 07:38: Patient refused to take levothyroxine, omeprazole and start IV zosyn at 0630. She agreed to take medications once she can have her pain medication and an inhaler. Albuterol inhaler given. Bindu Flores RN for oncoming shift updated with medication refusal until she takes her pain medication Original Note: alert and oriented x 4. Lung sounds clear, denies any shortness of breath. Patient has been on room air all night, sats maintained between 89-91%. Patient has productive cough, reports that it seems better than the day prior. Pain reported to BLE, utilized prn hydroxyzine, oxycodone and tylenol for pain management. patient reporting to web content writer and to Chantelle Zamora RN several times this shift that because they said I had that episode in the morning they changed my pain medication and now my pain is worse. At 0335 patient requested soup and crackers, around 4am patient put call light on, light answered by Chantelle LEDESMA and patient reporting that she fell asleep with soup in hand and spilled all over herself. Chantelle assisted patient with cleaning up the soup, at that time she reported that she was having severe pain and is concerned about having her pain medication reduced and that her is also concerned about her pain and that he may remove her from the hospital.
[2022-12-28 06:30] LABS: HCO3 VBG 34 mmol/L (21-28); PCO2 VBG 51 mmHG (40-50); PO2 VBG 57.6 mmHG (25-47); pH VBG 7.436 (7.32-7.43)
[2022-12-28 06:34] LABS: Basophils Absolute Auto 0.02 K/uL (0.00-0.30); Basophils Percent Auto 0.2 % (0.0-3.0); Eosinophils Absolute Auto 0.03 K/uL (0.00-0.50); Eosinophils Percent Auto 0.3 % (0.0-7.0); Hematocrit 30.2 % (33.0-51.0); Hemoglobin* 9.6 gm/dL (12.0-16.0); Immature Granulocytes Abs Auto 0.01 K/uL (0.00-0.30); Immature Granulocytes Pct Auto 0.1 %; Lymphocytes Percent Auto 17.7 % (20-44); Mean Corpuscular HGB Conc 32 gm/dL (32-36); Mean Corpuscular Hemoglobin 27 pg (26-34); Mean Corpuscular Volume 86 fL (80-100); Monocytes Percent Auto 8.5 % (0.0-11.0); Neutrophils Percent Auto 73.2 % (42.0-72.0); Platelet Count* 189 K/uL (140-440); RDW Coefficient of Variation % 13.9 % (11.5-15.5); Red Blood Count 3.51 m/uL (4.00-5.20); White Blood Count* 10.19 K/uL (4.50-11.00)
[2022-12-28 06:38] LABS: Slide Review Reflex No
[2022-12-28] MEDS: LEVOTHYROXINE 75 MCG TABLET 225 MCG PO (06:47)
[2022-12-28] MEDS: OMEPRAZOLE 20 MG CAPSULE DR 40 MG PO (06:47)
[2022-12-28] MEDS: ALBUTEROL INHALER 2 PUFF IH (07:07)
[2022-12-28 07:25] VITALS: PULSE 76
[2022-12-28 07:29] LABS: Chloride* 95 mmol/L (96-114); Potassium* 3.8 mmol/L (3.6-5.1); Sodium* 133 mmol/L (135-149)
[2022-12-28 07:32] LABS: Blood Urea Nitrogen* 12 mg/dL (7-30); Calcium* 8.2 mg/dL (8.4-10.6); Carbon Dioxide* 35 mmol/L (20-32); Creatinine* 0.6 mg/dL (0.5-1.5); Est. Creatinine Clearance* 52.05; Estimated Glomerular Filt Rate 96 ml/min; Glucose* 121 mg/dL (60-115)
--- NOTE | 2022-12-28 07:35 | CRLHL7_ITS ---
For Patients: As a result of the Cures Act, medical imaging exams and procedure reports are released immediately into your electronic medical record. You may view this report before your referring provider. If you have questions, please contact your health care provider. INDICATION: f/u pneumonia TECHNIQUE: Chest 2 views COMPARISON: 12.26.22 FINDINGS: Reticular densities are present bilaterally along with patchy areas of ground-glass density. No pleural effusion. Postop changes to the upper abdomen. No fracture. IMPRESSION: Bilateral bronchiolitis/infiltrates. This appears slightly more prominent compared to the prior study, particularly on the right. Dictated by Sampson Milan MD @ 12/28/2022 10:26:33 AM (Electronically Signed)
[2022-12-28 08:00] VITALS: BP 119/76; PULSE 87; RESP 18; RESP 22; TEMP 36.6; O2SAT 93
[2022-12-28 09:00] VITALS: RESP 22; O2SAT 92
[2022-12-28] MEDS: AMLODIPINE 5 MG TABLET PO (09:19)
[2022-12-28] MEDS: predniSONE 20 MG TABLET 40 MG PO (09:19)
[2022-12-28] MEDS: buPROPion HCL 100 MG TAB.SR.12H PO (09:19)
[2022-12-28] MEDS: ROSUVASTATIN CALCIUM 10 MG TABLET 5 MG PO (09:19)
[2022-12-28] MEDS: NYSTATIN POWDER 1 APPLIC TOPICAL (09:20)
[2022-12-28] MEDS: CLOPIDOGREL 75 MG TABLET PO (09:20)
[2022-12-28] MEDS: FLUOXETINE HCL 20 MG CAPSULE 40 MG PO (09:20)
[2022-12-28] MEDS: LIDOCAINE 5% PATCH 1 PATCH TRANSDERMA ×2 (09:20)
[2022-12-28] MEDS: SODIUM CHLORIDE 0.9 % (FLUSH) 10 ML SYRINGE 5 ML IVF (09:21)
--- NOTE | 2022-12-28 09:55 | RESP.RT ---
Addendum entered by Georgi Black, KICK PRESS OPERATOR, RN OFFICE 12/28/22 10:02: Used IS with Patient, patient able to reach 1500 on scale keeping float in middle of mariano. Original Note: Patient sitting up in chair, resting comfortably. On room air, SaO2 92%, breathing regular/easy, slightly shallow. BBS; diminished breath sounds all hall, with SOFÍA slightly more diminished, no wheezing noted, upper air grunt noted. PEP therapy with Aerobika. explanation, instruction, return demonstration from patient with Fair expiration effort, fair chest shake, secretions produced, swallowed by patient. Patient understand why using Aerobika for for Lung Recruitment, and secretion mobilization. Patient receiving Nebulizer treatments and Albuterol MDI, has same at home.
[2022-12-28 12:36] VITALS: PULSE 76; RESP 22; TEMP 36.6
[2022-12-28] MEDS: ONDANSETRON ODT 4 MG TAB PO (12:43)
--- NOTE | 2022-12-28 13:55 | PC.NURSE ---
VSS AND AFEBRILE. PRODUCTIVE COUGH. TOLERATING REGULAR DIET. UP WITH SBA AND WALKER TO BATHROOM. O2 SATS 90-93%RA. ENCOURAGED INCENTIVE SPIROMETER AND AEROBIKA USE. PATIENT DROWSY AT BEGINNING OF SHIFT BUT AROUSABLE TO LIGHT SHAKING. PATIENT'S SPEECH AT THAT TIME SLURRED AND DELAYED BUT IMPROVED SHIFT PROGRESSED AND PATIENT BECAME MORE AWAKE. SALINE LOCK DC'D. REVIEWED DC INSTRUCTIONS WITH PATIENT AND HER . PATIENT DC'D HOME VIA .
--- NOTE | 2022-12-28 14:00 | PC.NURSE ---
PATIENT WAS EXPRESSING FRUSTRATION THIS AM THAT HER OXYCODONE DOSE HAD BEEN DECREASED. MD UPDATED AND ADDITIONAL OXYCODONE 5MG WAS ADMINISTERED.
--- NOTE | 2022-12-28 16:30 | PM.IMHP1 ---
Hospitalist- H&P: HPI History of Present Illness Date Seen: 12/28/22 Chief complaint: Pneumonia Narrative: HOSPITALIST DISCHARGE SUMMARY ATTENDING PHYSICIAN: Amanda Herrera MD FINAL DIAGNOSIS: Multifocal pneumonia, likely related to aspiration Acute hypoxic hypercapnic respiratory failure Significant opioid dependence with risk Polypharmacy Personality disorder HOSPITAL FOLLOWUP ISSUES: 1. The pneumonia we see on the xray is improving clinically. You are off oxygen and your blood gas looks much better. well point pumping supervisor the ZPACK and follow the directions. This is well tolerated by most patients. I've also sent prednisone to the pharmacy to finish a taper of this medication. Continue to use the aerobika and incentive spirometer for increasing your oxygen delivery. 2. I also sent lidocaine patches to your pharmacy. 3. It is our recommendation that you take your oxycodone down to 5mg instead of 10mg per dose and take the klonopin down to 0.5mg instead of 1 mg at night. Your pneumonia is possibly caused by aspiration when you have a lot of these type of medications in your system. 4. Please see your primary care physician to go over recent events. REFERRALS WHILE ADMITTED: None REFERRALS AFTER DISCHARGE: PCP BRIEF HOSPITAL COURSE: Leticia is a 72-year-old who is on chronic opioids and other sedating medications for chronic pain. She was admitted for acute respiratory hypoxic and hypercapnic failure related to aspiration pneumonia and polypharmacy. She quickly stabilized with oxygen support, reduction in her medications, antibiotics. On the day of discharge she was on room air, she was alert, demonstrating she was able to self-care, pCO2 was nearly normal within normal pH. We treated her with IV Zosyn but she had previously been on antibiotics during her November hospitalization at [facility] and recent Augmentin started at urgent care. It is possible she did not need any further antibiotics but I did send her home on 1 course of azithromycin. She has a lot of drug allergies and in sensitivities. Leticia was a difficult patient to help care secondary to demanding attitude and manipulation regarding meds and direction of care. SUBSTANTIVE NOTATIONS ON IMAGING, LAB, MICROBIOLOGY/PATHOLOGY STUDIES: Afebrile throughout her stay. The day of discharge her temp was 97.8? F Blood pressure 119/76 Pulse rate 76 Respiratory rate 22 Pulse ox 92% on room air 121.7 kilos CBC reflected a normal white blood cell count during her admission. Her hemoglobin down trended from 11.3-9.6. Her platelet count was normal. Her venous blood gas reflected a peak pCO2 of 62 on the but was down to 51 on 12/28, day of discharge. Her pH was 7.4. Sodium was mildly depressed at 133. Normal renal function. Procalcitonin was reassuring, normal. Blood cultures were negative from admission. Sputum culture showed normal sputum ketan. This was not an optimal specimen with less than 10 epithelial cells per low power field Echocardiogram done during this admission showed a normal left ventricular function and size. Mild LVH. Dilated ascending aorta at 4.2 cm. Otherwise no significant findings. Chest x-ray on admission Bilateral bronchiolitis/infiltrates. This appears slightly more prominent compared to the prior study, particularly on the right. DISCHARGE MEDICATIONS: See Reconciled list - SIGNIFICANT CHANGES: I recommended a reduction in her benzodiazepine and opioid regimen. Azithromycin course. REVIEW OF SYSTEMS No new chest pain or dyspnea Pain controlled No voiding difficulties Tolerating diet challenge PHYSICAL EXAM: CONSTITUTIONAL: Alert, awake. No acute respiratory distress or work of breathing. VITAL SIGNS: see record. HEENT: Normocephalic, atraumatic. PERRL, EOMI, conjunctivae pink, no scleral icterus. Ears and nose externally normal. Pharynx normal. NECK: No JVD. No carotid bruit, no thyromegaly, no adenopathy. CHEST: Clear to auscultation bilaterally. HEART: S1 and S2 normal. Edema ABDOMEN: Soft, nontender. Normal bowel sounds. MUSCULOSKELETAL: No gross joint deformity or swelling. NEURO: Cranial nerves intact. Grossly intact. No asymmetric findings. SKIN: No rashes, petechiae, concerning changes PSYCHIATRIC: Mood euthymic. DISPOSITION: Home with Time spent on discharge 37 minutes. [facility] Medical History (Updated 12/28/22 @ 16:45 by Amanda Herrera MD) Hypothyroidism ?E03.9 - Hypothyroidism, unspecified (ICD-10) Non-insulin dependent diabetes mellitus Chronic pain syndrome ?G89.4 - Chronic pain syndrome (ICD-10) Postsurgical hypothyroidism ?E89.0 - Postprocedural hypothyroidism (ICD-10) Osteoarthritis ?M19.90 - Unspecified osteoarthritis, unspecified site (ICD-10) Obesity ?E66.9 - Obesity, unspecified (ICD-10) Myalgia and myositis HTN (hypertension) ?I10 - Essential (primary) hypertension (ICD-10) Esophageal reflux ?K21.9 - Gastro-esophageal reflux disease without esophagitis (ICD-10) Endocrine disorder ?E34.9 - Endocrine disorder, unspecified (ICD-10) Diabetic neuropathy, type II diabetes mellitus ?E11.40 - Type 2 diabetes mellitus with diabetic neuropathy, unspecified (ICD-10) Depression ?F32.A - Depression, unspecified (ICD-10) COPD (chronic obstructive pulmonary disease) ?J44.9 - Chronic obstructive pulmonary disease, unspecified (ICD-10) Asthma ?J45.909 - Unspecified asthma, uncomplicated (ICD-10) Surgical History (Updated 12/26/22 @ 19:38 by Beeb Mcclelland MD) H/O: hysterectomy ?Z90.710 - Acquired absence of both cervix and uterus (ICD-10) H/O gastric bypass ?Z98.84 - Bariatric surgery status (ICD-10) History of cholecystectomy ?Z90.49 - Acquired absence of other specified parts of digestive tract (ICD-10) H/O arthroscopic knee surgery ?Z98.890 - Other specified postprocedural states (ICD-10) Social History (Updated 12/26/22 @ 21:33 by Bebe Mcclelland MD) Narrative: Patient lives with her Alejandro (medical decision maker) in [place]. 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 Quit smoking in approximately 1999, no concerning alcohol use. What is your current living situation: I presently have a place to live Problems where you live: no known problems Problems where you live details: NONE In the past 12 months, utilities in danger of being shut off: no In the past 12 mos, have been you worried that your food would run out before you had money to buy more?: never true In the past 12 mos, the food you bought just didn't last and you didn't have money to buy more?: never true Highest level of school completed/degree received: Associate degree: academic program Smoking Status: Former smoker What tobacco products do you use: cigarettes Smoking quit date/years: >15 years ago How often do you have a drink containing alcohol: never AUDIT-C Alcohol total score: 0 Non-prescribed substance use: denies use Caffeine: Yes (COUPLE CUPS COFFEE) How often does anyone, including family, friends and others, physically hurt you: How often does anyone, including family, friends and others, insult or talk down to you: How often does anyone, including family, friends and others, threaten you with harm: How often does anyone, including family, friends and others, scream or curse at you: service: No Meds Home Medications and Allergies Home Medications Medication Instructions Recorded Confirmed Type albuterol sulfate 90 mcg/actuation 2 puff inhalation Q6H PRN dyspnea 12/26/22 12/26/22 History aerosol inhaler (Ventolin HFA) amlodipine 5 mg tablet 5 mg PO Q12H 12/26/22 12/26/22 History bupropion HCl 100 mg tablet 100 mg PO BID 12/26/22 12/26/22 History clonazepam 0.5 mg tablet 1 mg PO HS muscle spasm 12/26/22 12/27/22 History clopidogrel 75 mg tablet 75 mg PO DAILY 12/26/22 12/26/22 History fluoxetine 40 mg capsule 40 mg PO DAILY 12/26/22 12/26/22 History hydromorphone (PF)-0.9 % NaCl .Route 12/26/22 History hydroxyzine HCl 25 mg tablet 25 mg PO Q6H PRN itch 12/26/22 12/26/22 History ipratropium 0.5 mg-albuterol 3 mg 3 ml inhalation Q6H PRN wheezing 12/26/22 12/27/22 History (2.5 mg base)/3 mL nebulization soln levothyroxine 150 mcg tablet 150 - 225 mcg PO DAILY 12/26/22 12/27/22 History oxycodone 10 mg tablet 10 mg PO QID 12/26/22 12/27/22 History rosuvastatin 5 mg tablet 5 mg PO DAILY 12/26/22 12/26/22 History Lactobacillus rhamnosus GG 10 1 cap PO DAILY 12/27/22 12/27/22 History billion cell capsule (Culturelle) Magic Mouthwash ml PO PRN #120 mL 12/27/22 History (Lidocaine/Benadryl/Maalox) 120 mL suspension bisacodyl 5 mg tablet 5 - 15 mg PO BID 12/27/22 12/27/22 History cholecalciferol (vitamin D3) 25 2,000 unit PO DAILY 12/27/22 12/27/22 History mcg (1,000 unit) tablet cranberry 400 mg capsule 400 mg PO HS 12/27/22 12/27/22 History cyanocobalamin (vitamin B-12) 1,000 mcg IM [id number] 12/27/22 12/27/22 History 1,000 mcg/mL injection solution cyclobenzaprine 10 mg tablet 5 mg PO 3XD PRN muscle spasm 12/27/22 12/27/22 History diclofenac sodium 1 % topical gel 2 - 4 g topical QID PRN 12/27/22 12/27/22 History (Voltaren Arthritis Pain) esomeprazole magnesium 40 mg 40 mg PO BID 12/27/22 12/27/22 History capsule,delayed release (Nexium) famotidine-Ca carb-mag hydrox 10 1 tab PO QHS 12/27/22 12/27/22 History mg-800 mg-165 mg chewable tablet (Pepcid Complete) fluticasone propionate 50 1 spray intranasal DAILY PRN 12/27/22 12/27/22 History mcg/actuation nasal spray,suspension (24 Hour Allergy Relief) magnesium 250 mg tablet 500 mg PO DAILY 12/27/22 12/27/22 History naloxone 4 mg/actuation nasal spray 1 spray intranasal Q2-3M PRN 12/27/22 12/27/22 History nystatin 100,000 unit/mL oral 5 ml PO QID 12/27/22 12/27/22 History suspension ondansetron 4 mg disintegrating 4 mg PO Q8H PRN nausea 12/27/22 12/27/22 History tablet pediatric [id number] 1 tab PO DAILY 12/27/22 12/27/22 History (Flintstones Complete (iron) chewable tablet) sucralfate 1 gram tablet 1 g PO QID PRN 12/27/22 12/27/22 History Allergies Allergy/AdvReac Type Severity Reaction Status Date / Time capsaicin Allergy Mild Wheezing Verified 12/26/22 17:08 clindamycin Allergy Mild Nausea Verified 12/26/22 17:08 celecoxib Allergy Unknown Verified 12/26/22 17:08 levofloxacin Allergy Unknown Verified 12/26/22 17:08 duloxetine Allergy Mild Rash Uncoded 12/26/22 17:08 gabapentin Allergy Mild Hives Uncoded 12/26/22 17:08 latex Allergy Mild contact Uncoded 12/26/22 17:08 dermititis Adhesive Allergy Unknown Uncoded 12/26/22 17:08 carbamazepine Allergy Unknown Uncoded 12/26/22 17:08 cefuroxime Allergy Unknown Uncoded 12/26/22 17:08 ciprofloxacin Allergy Unknown Uncoded 12/26/22 17:08 citalopram Allergy Unknown Uncoded 12/26/22 17:08 levetiracetam Allergy Unknown Uncoded 12/26/22 17:08 methadone Allergy Unknown Uncoded 12/26/22 17:08 Exam Const: Vital Signs, click to edit/add: Vital Signs - 24 hr 12/27/22 17:17 12/27/22 19:00 12/27/22 23:00 Temperature 98.1 F 97.9 F Pulse Rate Pulse Rate [Left P ulse Oximeter] Pulse Rate [Left R adial] 92 Respiratory Rate 18 116 H Blood Pressure [Le ft Arm] 111/75 Blood Pressure [Ri ght Arm] Pulse Oximetry 90 [facility] 12/27/22 23:00 12/27/22 23:00 12/28/22 00:30 Temperature 97.5 F L Pulse Rate 75 Pulse Rate [Left P ulse Oximeter] 80 Pulse Rate [Left R adial] Respiratory Rate 18 Blood Pressure [Le ft Arm] Blood Pressure [Ri ght Arm] 103/62 Pulse Oximetry 89 89 [facility] Room Air 12/28/22 03:00 12/28/22 07:25 12/28/22 08:00 Temperature 97.5 F L 97.8 F Pulse Rate 76 Pulse Rate [Left P ulse Oximeter] 80 87 Pulse Rate [Left R adial] Respiratory Rate 18 18 Blood Pressure [Le ft Arm] Blood Pressure [Ri ght Arm] 117/60 119/76 Pulse Oximetry 89 93 [facility] Room Air 12/28/22 08:00 12/28/22 08:00 12/28/22 09:00 Temperature Pulse Rate Pulse Rate [Left P ulse Oximeter] Pulse Rate [Left R adial] Respiratory Rate 22 22 Blood Pressure [Le ft Arm] Blood Pressure [Ri ght Arm] Pulse Oximetry 93 92 [facility] Room Air 12/28/22 12:36 Temperature 97.8 F Pulse Rate 76 Pulse Rate [Left P ulse Oximeter] Pulse Rate [Left R adial] Respiratory Rate 22 Blood Pressure [Le ft Arm] Blood Pressure [Ri ght Arm] Pulse Oximetry Oxygen Delivery Ak kenyon Hospitalist - H&P: Result Labs Labs: Short CBC 12/28/22 Range/Units 06:15 WBC 10.19 (4.50-11.00) K/uL Hgb 9.6 L (12.0-16.0) gm/dL Hct 30.2 L (33.0-51.0) % Plt Count 189 (140-440) K/uL BMP 12/28/22 06:15 Sodium 133 L Potassium 3.8 Chloride 95 L Carbon Dioxide 35 H BUN 12 Creatinine 0.6 Glucose 121 H Calcium 8.2 L Assessment and Plan Assessment and plan (1) Acute respiratory failure with hypoxia: Problem comment: - multifactorial: Pneumonia, suspect aspiration from being obtunded related to polypharmacy. Zosyn and prednisone. Z-Travis as an outpatient at discharge. Prednisone taper. - normal LVF Status: Acute (2) Pneumonia: Problem comment: As above. Multifocal. Likely aspiration. Status: Acute (3) COPD (chronic obstructive pulmonary disease): Problem comment: Outpatient pulmonary follow-up Status: Acute (4) Chronic pain syndrome: Problem comment: - on Dilaudid via intrathecal pain pump and QID Oxycodone, in addition she takes muscle relaxants and benzodiazepines. Polypharmacy significant. - follows with [facility] in [place] Status: Acute (5) Non-insulin dependent diabetes mellitus: Problem comment: - last A1C 5.7 in 11/2022 - BG's are within inpatient goal 140-180, continue prn accuchecks Status: Acute (6) Apnea: Problem comment: suspect sleep apnea and overmedication with opioid/benzo combo Status: Acute (7) Obtundation: Problem comment: Resolved with adjustment in her medications. Status: Acute
== END 2022-12-28 13:40 | disposition home or self-care (01) | DRG 177 ==
LOC: ED 17:26 → MEDSURG 19:32
PROVIDERS: Family Medicine; Admitting Provider Family Medicine; Emergency Provider Emergency Medicine Emergency Medical Services; Visit Provider Family Medicine
DX: J69.0 Pneumonitis due to inhalation of food and vomit (principal); J96.01 Acute respiratory failure with hypoxia; J96.02 Acute respiratory failure with hypercapnia; J44.0 Chronic obstructive pulmonary disease with (acute) lower respiratory infection; F11.20 Opioid dependence, uncomplicated; Z68.41 Body mass index [BMI] 40.0-44.9, adult; G89.4 Chronic pain syndrome; Z98.84 Bariatric surgery status; J45.909 Unspecified asthma, uncomplicated; E11.40 Type 2 diabetes mellitus with diabetic neuropathy, unspecified; I10 Essential (primary) hypertension; E66.9 Obesity, unspecified; F60.9 Personality disorder, unspecified; F32.A Depression, unspecified; E89.0 Postprocedural hypothyroidism; E34.9 Endocrine disorder, unspecified; K21.9 Gastro-esophageal reflux disease without esophagitis; B37.9 Candidiasis, unspecified
CPT/HCPCS: 36415; 71045; 71046; 80048; 82803; 84145; 85025; 87040; 87070; 93005; 93306; 94640; 94664; 94761; 99284; 99285; A9270; J1650; J2405; J2543; J2920; J7050; J7512

== ENCOUNTER 2023-05-14 16:24 | Emergency (ER) | payer MEDICARE, BC, SELFPAY ==
[2023-05-14 16:37] VITALS: BP 146/83; PULSE 97; RESP 20; TEMP 36.8; O2SAT 92; BMI 41.1
--- NOTE | 2023-05-14 18:19 | CRLHL7_ITS ---
For Patients: As a result of the Century Cures Act, medical imaging exams and procedure reports are released immediately into your electronic medical record. You may view this report before your referring provider. If you have questions, please contact your health care provider. INDICATION: Upper abdominal pain. Nausea. History of gastric bypass. TECHNIQUE: CT abdomen and pelvis acquired with 113 mL Isovue 370 IV contrast. COMPARISON: None available. FINDINGS: Lower chest: See separate report of same day CT chest. Liver: No suspicious focal hepatic lesion. Gallbladder and bile ducts: Postcholecystectomy. Pancreas: Diffuse fatty atrophy. Spleen: Unremarkable. Adrenal glands: Unremarkable. Kidneys: Kidneys enhance symmetrically, without hydronephrosis. Retroperitoneum: No lymphadenopathy. Bowel and mesentery: Bowel is not obstructed. No significant ascites. No pneumoperitoneum. Severe fecal burden is present throughout the colon, suggestive of constipation. There is fluid within the distal ascending and proximal transverse colon, compatible with component of diarrhea. Appendix not definitely visualized. Postsurgical changes of gastric bypass. There is dilation of the jejunal limb upstream of the jejunal-jejunal anastomosis. Bladder: Unremarkable for degree of distension. Reproductive organs: Posthysterectomy. Pelvic lymph nodes: No lymphadenopathy. Vessels: Few scattered atherosclerotic calcifications. Abdominal wall: No acute abdominal wall abnormality. Stimulator device in the left gluteal subcutaneous fat. Bones: Multilevel degenerative changes of the spine. Bones are osteopenic. IMPRESSION: 1. Severe fecal burden is present throughout the colon, suggestive of constipation. Fluid within the distal ascending and proximal transverse colon, compatible with component of diarrhea. 2. Postsurgical changes of gastric bypass. There is dilation of the jejunal limb upstream of the jejunal-jejunal anastomosis, which may reflect component of obstruction versus ileus. 3. Additional incidental findings as above. Please note that all CT scans at this facility use dose modulation, iterative reconstruction, and/or weight-based dosing when appropriate to reduce radiation dose to as low as reasonably achievable. Dictated by Jose L Grady MD @ 05/14/2023 9:57:59 PM (Electronically Signed)
--- NOTE | 2023-05-14 18:19 | CRLHL7_ITS ---
For Patients: As a result of the 21st Century Cures Act, medical imaging exams and procedure reports are released immediately into your electronic medical record. You may view this report before your referring provider. If you have questions, please contact your health care provider. INDICATION: [id number], hypoxia, upper abdominal pain, nausea TECHNIQUE: CT chest PE was acquired with 113 mL Isovue 370 IV contrast. COMPARISON: None. FINDINGS: Heart and vasculature: Technically limited examination secondary to body habitus, artifact from arms within the radiographic field. Contrast opacification of the pulmonary arterial tree is inadequate distally, especially on the left. No sign of large/major pulmonary embolism. Distal to the segmental pulmonary artery level, in left lower lobe, evaluation/detail is limited. Heart size is upper normal. Thoracic aorta and pulmonary artery are normal in caliber. Lungs and pleural: Elevated right hemidiaphragm. Mild atelectasis right lower lobe. Right upper lobe infiltrates, axial images 35 through 66 of series 11. No pleural effusions, pleural thickening, or pneumothorax. Lymph nodes/mediastinum: No mediastinal, hilar, or axillary adenopathy. Chest wall: No masses. Upper abdomen: Gas and stool distended colon. Status post gastric bypass. Bones: Unremarkable for age. IMPRESSION: 1. Limited examination, as above. Detail of left lower lobe pulmonary arteries limited. No large/major pulmonary embolism identified. 2. Right upper lobe pulmonary opacities, possibly infectious/inflammatory infiltrates. Right hemidiaphragm is elevated. There are areas of minor atelectasis right and left lower lobes. 3. Gas and stool distention of the colon, as visualized in the upper abdomen. Status post gastric bypass. Please note that all CT scans at this facility use dose modulation, iterative reconstruction, and/or weight-based dosing when appropriate to reduce radiation dose to as low as reasonably achievable. Dictated by Narayan Gilbert MD @ 05/14/2023 10:09:21 PM (Electronically Signed)
--- NOTE | 2023-05-14 19:18 | ED_ITS ---
HPI - General Adult General Chief complaint: Weakness Stated complaint: UTi, seen at urgent care, no improvement Time Seen by Provider: 05/14/23 17:17 History of Present Illness HPI narrative: This is a 72-year-old female presenting to the ER this afternoon with her for evaluation of multiple symptoms including a UTI, abdominal pain, nausea, difficulty breathing, low oxygen sats. She has a complex past medical history including previous gastric bypass surgery, GERD, hoarse voice from GERD, diabetes, diabetic neuropathy, chronic pain in her abdomen me with a morphine pain pump and chronic use of oxycodone, hypothyroidism, hypertension, COPD, chronic hypoxia with home oxygen p.r.n., she was hospitalized about 4 months ago in December for multifocal pneumonia likely due to aspiration. She says she has been ill with symptoms of UTI going on for a couple of weeks. Some clear how symptoms progress but it sounds like she tried to contact her doctor's office as an outpatient and they sent in a prescription for antibiotics which she could not fill. She was feeling worse a couple of days ago so was seen in the urgency room in the [facility] yesterday. She was apparently diagnosed with a UTI, given IV fluids and Zofran. She was sent home with a prescription for cephalexin. She could feel the cephalexin prescription last night so feel that this morning. She has taken 1 dose of cephalexin but isn't feeling better. If anything she is worse. She brought in a paper printout of her workup from [facility]. Results include: Urine micro: 3-5 RBC, 6-10 WBC, few bacteria, few epithelial cells Urinalysis specific gravity 1.015, trace leukocyte esterase, negative nitrite, negative ketones, negative glucose, negative bilirubin, moderate occult blood Troponin normal at 0.018 Chest x-ray: Unchanged surgical clips in the upper abdomen. Unchanged elevation of the right hemidiaphragm. No acute cardiopulmonary process. Stable cardiomediastinal silhouette. Sodium 134, potassium 3.5, chloride 99, bicarb 29, anion gap 6, glucose 148, calcium 8.6, BUN 7, creatinine 0.64 Albumin 4.3, bilirubin 0.3, AST 33, ALT 20, alk-phos 83 Influenza PCR negative WBC 13.5, hemoglobin 11.9, platelet count 195 Neutrophils 90%, lymphocytes 7%, monocytes 3% She also notes that overnight last night she was feeling short of breath. She does have chronic lung problems and uses oxygen p.r.n. home. Last night she measured her oxygen it was in the low 80s. This is much lower than typically when she measures at home. She is not coughing. She feels somewhat short of breath. No chest pain. She is feeling generally weak and dehydrated. She is nauseous today. Since she is not feeling better she came here to the ER. Related Data Home Medications Medication Instructions Recorded Confirmed albuterol sulfate 90 mcg/actuation 2 puff inhalation Q6H PRN dyspnea 12/26/22 12/26/22 aerosol inhaler (Ventolin HFA) amlodipine 5 mg tablet 5 mg PO Q12H 12/26/22 12/26/22 bupropion HCl 100 mg tablet 100 mg PO BID 12/26/22 12/26/22 clonazepam 0.5 mg tablet 1 mg PO HS muscle spasm 12/26/22 12/27/22 clopidogrel 75 mg tablet 75 mg PO DAILY 12/26/22 12/26/22 fluoxetine 40 mg capsule 40 mg PO DAILY 12/26/22 12/26/22 hydromorphone (PF)-0.9 % NaCl .Route 12/26/22 hydroxyzine HCl 25 mg tablet 25 mg PO Q6H PRN itch 12/26/22 12/26/22 ipratropium 0.5 mg-albuterol 3 mg 3 ml inhalation Q6H PRN wheezing 12/26/22 12/27/22 (2.5 mg base)/3 mL nebulization soln levothyroxine 150 mcg tablet 150 - 225 mcg PO DAILY 12/26/22 12/27/22 oxycodone 10 mg tablet 10 mg PO QID 12/26/22 12/27/22 rosuvastatin 5 mg tablet 5 mg PO DAILY 12/26/22 12/26/22 Lactobacillus rhamnosus GG 10 1 cap PO DAILY 12/27/22 12/27/22 billion cell capsule (Culturelle) Magic Mouthwash ml PO PRN #120 mL 12/27/22 (Lidocaine/Benadryl/Maalox) 120 mL suspension bisacodyl 5 mg tablet 5 - 15 mg PO BID 12/27/22 12/27/22 cholecalciferol (vitamin D3) 25 2,000 unit PO DAILY 12/27/22 12/27/22 mcg (1,000 unit) tablet cranberry 400 mg capsule 400 mg PO HS 12/27/22 12/27/22 cyanocobalamin (vitamin B-12) 1,000 mcg IM [id number] 12/27/22 12/27/22 1,000 mcg/mL injection solution cyclobenzaprine 10 mg tablet 5 mg PO 3XD PRN muscle spasm 12/27/22 12/27/22 diclofenac sodium 1 % topical gel 2 - 4 g topical QID PRN 12/27/22 12/27/22 (Voltaren Arthritis Pain) esomeprazole magnesium 40 mg 40 mg PO BID 12/27/22 12/27/22 capsule,delayed release (Nexium) famotidine-Ca carb-mag hydrox 10 1 tab PO QHS 12/27/22 12/27/22 mg-800 mg-165 mg chewable tablet (Pepcid Complete) fluticasone propionate 50 1 spray intranasal DAILY PRN 12/27/22 12/27/22 mcg/actuation nasal spray,suspension (24 Hour Allergy Relief) magnesium 250 mg tablet 500 mg PO DAILY 12/27/22 12/27/22 naloxone 4 mg/actuation nasal spray 1 spray intranasal Q2-3M PRN 12/27/22 12/27/22 nystatin 100,000 unit/mL oral 5 ml PO QID 12/27/22 12/27/22 suspension ondansetron 4 mg disintegrating 4 mg PO Q8H PRN nausea 12/27/22 12/27/22 tablet pediatric [id number]-[id number]-[id number] 1 tab PO DAILY 12/27/22 12/27/22 (Flintstones Complete (iron) chewable tablet) sucralfate 1 gram tablet 1 g PO QID PRN 12/27/22 12/27/22 Previous Rx's Medication Instructions Recorded azithromycin 250 mg tablet 250 mg PO DIRECTED #6 tabs 12/28/22 lidocaine 5 % topical patch 1 patch transdermal DAILY #30 ea 12/28/22 (Lidoderm) prednisone 20 mg tablet 40 mg (2 x 20 mg) PO DAILYWM #8 12/28/22 tabs Allergies Allergy/AdvReac Type Severity Reaction Status Date / Time capsaicin Allergy Mild Wheezing Verified 05/14/23 21:36 clindamycin Allergy Mild Nausea Verified 05/14/23 21:36 celecoxib Allergy Unknown Verified 05/14/23 21:36 levofloxacin Allergy Unknown Verified 05/14/23 21:36 duloxetine Allergy Mild Rash Uncoded 05/14/23 21:36 gabapentin Allergy Mild Hives Uncoded 05/14/23 21:36 latex Allergy Mild contact Uncoded 05/14/23 21:36 dermititis Adhesive Allergy Unknown Uncoded 05/14/23 21:36 carbamazepine Allergy Unknown Uncoded 05/14/23 21:36 cefuroxime Allergy Unknown Uncoded 05/14/23 21:36 ciprofloxacin Allergy Unknown Uncoded 05/14/23 21:36 citalopram Allergy Unknown Uncoded 05/14/23 21:36 levetiracetam Allergy Unknown Uncoded 05/14/23 21:36 methadone Allergy Unknown Uncoded 05/14/23 21:36 [facility] Medical History (Updated 05/14/23 @ 22:32 by Thierno Fountain MD) Hypothyroidism ?E03.9 - Hypothyroidism, unspecified (ICD-10) Non-insulin dependent diabetes mellitus Chronic pain syndrome ?G89.4 - Chronic pain syndrome (ICD-10) Postsurgical hypothyroidism ?E89.0 - Postprocedural hypothyroidism (ICD-10) Osteoarthritis ?M19.90 - Unspecified osteoarthritis, unspecified site (ICD-10) Obesity ?E66.9 - Obesity, unspecified (ICD-10) Myalgia and myositis HTN (hypertension) ?I10 - Essential (primary) hypertension (ICD-10) Esophageal reflux ?K21.9 - Gastro-esophageal reflux disease without esophagitis (ICD-10) Endocrine disorder ?E34.9 - Endocrine disorder, unspecified (ICD-10) Diabetic neuropathy, type II diabetes mellitus ?E11.40 - Type 2 diabetes mellitus with diabetic neuropathy, unspecified (ICD-10) Depression ?F32.A - Depression, unspecified (ICD-10) COPD (chronic obstructive pulmonary disease) ?J44.9 - Chronic obstructive pulmonary disease, unspecified (ICD-10) Asthma ?J45.909 - Unspecified asthma, uncomplicated (ICD-10) Surgical History (Updated 12/26/22 @ 19:38 by Bebe Mcclelland MD) H/O: hysterectomy ?Z90.710 - Acquired absence of both cervix and uterus (ICD-10) H/O gastric bypass ?Z98.84 - Bariatric surgery status (ICD-10) History of cholecystectomy ?Z90.49 - Acquired absence of other specified parts of digestive tract (ICD- 10) H/O arthroscopic knee surgery ?Z98.890 - Other specified postprocedural states (ICD-10) Social History (Updated 12/26/22 @ 21:33 by Bebe Mcclelland MD) Narrative: Patient lives with her Alejandro (medical decision maker) in [place]. 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 Quit smoking in approximately 1999, no concerning alcohol use. What is your current living situation?: I presently have a place to live Problems where you live: no known problems Problems where you live details: NONE In the past 12 months, utilities in danger of being shut off: no In past 12 months, lack of transportation kept you from medical appts, meetings, work, or getting things needed for daily living: no In the past 12 mos, have been you worried that your food would run out before you had money to buy more?: never true In the past 12 mos, the food you bought just didn't last and you didn't have money to buy more?: never true Highest level of school completed/degree received: Associate degree: academic program Smoking Status: Former smoker What tobacco products do you use: cigarettes Smoking quit date/years: >15 years ago How often do you have a drink containing alcohol: never AUDIT-C Alcohol total score: 0 Non-prescribed substance use: denies use Caffeine: Yes (COUPLE CUPS COFFEE) How often does anyone, including family, friends and others, physically hurt you : never How often does anyone, including family, friends and others, insult or talk down to you: never How often does anyone, including family, friends and others, threaten you with harm: never How often does anyone, including family, friends and others, scream or curse at you: never service: No Exam Narrative: Exam Narrative: Constitutional: Appears well-developed . Over-nourished. In a wheelchair. Alert. Conversant, but somewhat tangential historian. supportively a bedside in supplements or history. Overall, sitting up, conversant, and Non toxic. HENT: Head: Atraumatic. Nose: Nose normal. Mouth/Throat: Oral mucosa is clear and moist. no trismus. Pharynx normal. Tonsils symmetric. No tonsillar enlargement, erythema, or exudate. Eyes: Conjunctivae normal. EOM normal. Pupils equal, round, and reactive to light. No scleral icterus. Neck: Normal range of motion. Neck supple. No tracheal deviation present. Cardiovascular: Normal rate, regular rhythm. No gallop. No friction rub. No murmur heard. Symmetric radial artery pulses Pulmonary/Chest: Effort normal. No stridor. No respiratory distress. No wheezes. No rales. No rhonchi . No tenderness. Abdominal: Soft. Bowel sounds normal. Protuberant due to body habitus. Mild distention.. No mass. Bilateral upper quadrant tenderness. No rebound. No guarding. Musculoskeletal: RUE: Normal range of motion. No tenderness. No deformity LUE: Normal range of motion. No tenderness. No deformity RLE: Normal range of motion. Trace edema. No tenderness. No deformity LLE: Normal range of motion. Trace edema. No tenderness. No deformity Neurological: Alert and oriented to person, place, and time. Normal strength. CN II-VII intact. No sensory deficit. GCS eye subscore is 4. GCS verbal subscore is 5. GCS motor subscore is 6. Normal coordination Skin: Skin is warm and dry. No rash noted. No pallor. Normal capillary refill. Psychiatric: Normal mood. Normal affect. Const: Vital Signs, click to edit/add: Vital Signs - 24 hr 05/14/23 16:37 Temperature 98.3 F Pulse Rate [Pulse Oximeter] 97 Respiratory Rate 20 Blood Pressure [Ri ght Forearm] 146/83 H Pulse Oximetry 92 Oxygen Delivery Me thod Room Air Course Vital Signs Vital signs: Initial Vital Signs Temperature 98.3 F 05/14/23 16:37 Temperature Source Temporal Artery Scan 05/14/23 16:37 Pulse Rate 97 05/14/23 16:37 Pulse Rhythm Regular 05/14/23 16:37 Respiratory Rate 20 05/14/23 16:37 Blood Pressure 146/83 H 05/14/23 16:37 Blood Pressure Mean 104 05/14/23 16:37 Blood Pressure Position Sitting 05/14/23 16:37 Pulse Oximetry 92 05/14/23 16:37 Oxygen Delivery Method Room Air 05/14/23 16:37 Vital Signs Temperature 98.3 F 05/14/23 16:37 Pulse Rate 97 05/14/23 16:37 Respiratory Rate 20 05/14/23 16:37 Blood Pressure 146/83 H 05/14/23 16:37 Pulse Oximetry 92 05/14/23 16:37 Oxygen Delivery Method Room Air 05/14/23 16:37 Temperature 98.3 F 05/14/23 16:37 Pulse Rate 97 05/14/23 16:37 Respiratory Rate 20 05/14/23 16:37 Blood Pressure 146/83 H 05/14/23 16:37 Pulse Oximetry 92 05/14/23 16:37 Oxygen Delivery Method Room Air 05/14/23 16:37 Medical Decision Making MDM Narrative Medical decision making narrative: This is a 72-year-old female with a complex past medical history and multiple complaints here in the ER. Complaints would include 2-3 weeks of UTI symptoms, not getting better after starting an antibiotic this morning. Also generalized weakness, nausea, vomiting, concern for dehydration. Also shortness of breath and hypoxia overnight last night, worse than her normal baseline hypoxia. Also upper abdominal pain. 1. UTI. Urinalysis from the urgency Room yesterday was abnormal suggestive of UTI. She was started on cephalexin this morning and had 1 dose. At this point has not had sufficient time after initiating antibiotics to expect slow improvement. She did have a leukocytosis last night with a white count of 13.5. It is actually improved down to 9.6 today. She is normotensive. Lactic acid normal. No definitive evidence for sepsis. No septic shock. rocephin 1gIV 2. She is also experiencing upper abdominal pain and nausea today. It is possible that the nausea is related to her UTI. She also has previous gastric bypass and multiple abdominal surgeries. Will obtain CT imaging to look for bowel obstruction or other surgical pathology causing her symptoms. Laboratory workup shows normal kidney function, normal LFTs, normal lipase. CT scan does show a very large stool burden in her colon. Also possible bowel obstruction versus ileus affecting the jejunal limb of her Carola-en-Y gastric bypass. Discussed CT findings with our surgeon, Dr. Herrera. She recommends admission and transfer to a facility with bariatric surgery capability. Patient had all of her surgeries and postprocedural care at the [facility]. It sounds like she did require a dilation procedure at her gastric outlet. She has been stable for quite a few years so has not seen a few years. We did contact the [facility] transfer line. There are no beds to the [facility]. Very useful. Patient is on the wait list for a bed at the [facility]. The patient says her stomach is still hurting but feeling better after she has been here in the ER. She disputes whether not she has a true bowel obstruction. I discussed with her that the CT scan is not definitive but if there is a bowel obstruction she has the potential for serious deterioration. It would be to her benefit to have it evaluated by a trained bariatric surgeon, which are not avai lable here at [facility]. verbalizes understanding. 3. She does have COPD and chronic breathing difficulty with oxygen to use at home p.r.n.. She reports that she was more short of breath than normal last night and oxygen sats were measured in the low 80s, rather than her typical high 80s at night. She still feels somewhat short of breath today. She is having upper abdominal pain but not chest pain. Consider possible ACS. EKG shows no definite ischemia and troponin is negative. With symptoms since last night, I think a single troponin this evening would be sufficient to rule out NSTEMI. She is not really coughing. No wheezing or bronchospasm on my clinical exam to suggest COPD exacerbation. Oxygen saturation is 92% on room air here in the ER.. She had a negative influenza PCR at the urgency room yesterday but there is no evidence for COVID test on the records provided to me. COVID PCR tonight and fortunately it is negative. I have ordered chest CT to look for pulmonary embolism or pneumonia as a cause for her shortness of breath. She has a history of hospitalization for aspiration pneumonia. CT scan does show a right upper lobe infiltrate suspicious for pneumonia. Broaden antibiotic coverage to include azithromycin due to cover pneumonia. At this point she is not hypoxic. 4. She has been experiencing nausea and vomiting. Zofran for nausea. Feeling b angus. She was requesting food here in the ER and did eat a few chips. After we discovered potential bowel obstruction I asked her to make an p.o.. She is no longer vomiting. IV fluids for hydration. Kidney function looks okay. BUN 11, creatinine 0.7. It sodium on the low 131. Potassium normal at 3.8. Lab Data Labs: Lab Results 10/05/14/23 05/14/23 Range/Units 18:55 19:40 21:25 WBC 9.61 (4.50-11.00) K/uL RBC 4.26 (4.00-5.20) m/uL Hgb 11.0 L (12.0-16.0) gm/dL Hct 36.0 (33.0-51.0) % MCV 85 (80-100) fL MCH 26 (26-34) pg MCHC 31 L (32-36) gm/dL RDW Coeff of Joey 15.0 (11.5-15.5) % Plt Count 225 (140-440) K/uL Neut % (Auto) 73.7 H (42.0-72.0) % Lymph % (Auto) 17.7 L (20-44) % [place] % (Auto) 7.0 (0.0-11.0) % Eos % (Auto) 0.7 (0.0-7.0) % Baso % (Auto) 0.2 (0.0-3.0) % Neut # (Auto) 7.10 H (1.7-7.0) K/uL Lymph # (Auto) 1.70 (0.90-2.90) K/uL [place] # (Auto) 0.70 (0.00-0.90) K/UL Eos # (Auto) 0.07 (0.00-0.50) K/uL Baso # (Auto) 0.02 (0.00-0.30) K/uL Abs Immat Gran (auto) 0.07 (0.00-0.30) K/uL Imm/Tot Granulo (auto) 0.7 % Sodium 131 L (135-149) mmol/L Potassium 3.8 (3.6-5.1) mmol/L Chloride 95 L (96-114) mmol/L Carbon Dioxide 31 (20-32) mmol/L Anion Gap 5 L (7-15) mEq/L BUN 11 (7-30) mg/dL Creatinine 0.7 (0.5-1.5) mg/dL Estimated Creat Clear 52.05 Estimated GFR 92 ml/min Glucose 140 H (60-115) mg/dL Lactate 1.0 (0.5-1.9) mmol/L Calcium 8.7 (8.4-10.6) mg/dL Total Bilirubin 0.4 (0.1-1.5) mg/dL AST 36 H (12-35) U/L ALT 19 (4-35) U/L Alkaline Phosphatase 79 (40-150) U/L Troponin I < 0.01 L (0.01-0.04) ng/mL Total Protein 7.8 (6.0-8.3) g/dL Albumin 4.6 (3.3-5.0) g/dL Lipase 35 (23-300) U/L Urine Color Yellow (Yellow) Urine Appearance Clear (Clear) Urine pH 7.5 (5.0-8.5) Ur Specific [place] 1.015 (1.000-1.030) Urine Protein Negative (Negative) Urine Glucose (UA) Negative (Negative) Urine Ketones Negative (Negative) Urine Blood Negative (Negative) Urine Nitrite Negative (Negative) Urine Bilirubin Negative (Negative) Urine Urobilinogen 0.2 (0.2-1.0) Ur Leukocyte Esterase Trace A (Negative) Urine RBC 0-2 (0-2) Urine WBC 5-10 A (0-5) Ur Squamous Epith Cells Few (None-Few) Urine Bacteria Few A (None) SARS-CoV-2 (PCR) Negative SARS-CoV-2 (Negative) Influenza Type A (PCR) Negative PCR FLU A (Negative) Influenza Type B (PCR) Negative PCR FLU B (Negative) RSV (PCR) Negative PCR RSV (Negative) Imaging Data CT scan - chest: Attestation: I have reviewed the pertinent imaging results. Radiologist's impression: IMPRESSION: 1. Limited examination, as above. Detail of left lower lobe pulmonary arteries limited. No large/major pulmonary embolism identified. 2. Right upper lobe pulmonary opacities, possibly infectious/inflammatory infiltrates. Right hemidiaphragm is elevated. There are areas of minor atelectasis right and left lower lobes. 3. Gas and stool distention of the colon, as visualized in the upper abdomen. Status post gastric bypass. CT scan - abdomen: Attestation: I have reviewed the pertinent imaging results. Radiologist's impression: IMPRESSION: 1. Severe fecal burden is present throughout the colon, suggestive of constipation. Fluid within the distal ascending and proximal transverse colon, compatible with component of diarrhea. 2. Postsurgical changes of gastric bypass. There is dilation of the jejunal limb upstream of the jejunal-jejunal anastomosis, which may reflect component of obstruction versus ileus. 3. Additional incidental findings as above. ECG Data Attestation: I personally reviewed and interpreted this ECG as follows: Interpretation: Normal sinus rhythm rate 84 CT 202 QRS axis left after 6 CVA recinos. No pathologic Q-waves. ST segment/T wave: No ST segment elevation or depression. QTc: 453 Discharge Plan Discharge Clinical Impression: Obstruction of bowel, Complications of gastric bypass surgery, Acute UTI, Pneumonia Prescriptions: No Action fluoxetine 40 mg capsule 40 mg PO DAILY ipratropium-albuterol 0.5 mg-3 mg(2.5 mg base)/3 mL solution for nebulization 3 ml INHALATION Q6H PRN (Reason: wheezing) clonazepam 0.5 mg tablet 1 mg PO HS clopidogrel 75 mg tablet 75 mg PO DAILY amlodipine 5 mg tablet 5 mg PO Q12H bupropion HCl 100 mg tablet 100 mg PO BID levothyroxine 150 mcg tablet 150 - 225 mcg PO DAILY Rx Instructions: 1.5 tabs monday and monday, 1 tab all other days hydroxyzine HCl 25 mg tablet 25 mg PO Q6H PRN (Reason: itch) albuterol sulfate [Ventolin HFA] 90 mcg/actuation HFA aerosol inhaler 2 puff inhalation Q6H PRN (Reason: dyspnea) rosuvastatin 5 mg tablet 5 mg PO DAILY hydromorphone (PF)-0.9 % NaCl .Route Patient Comments: continuous intrathecal infusion and has marcaine mixed with hydromorphine oxycodone 10 mg tablet 10 mg PO QID Pepcid Complete 10-800-165 mg tablet,chewable 1 tab PO QHS cyanocobalamin (vitamin B-12) 1,000 mcg/mL solution 1,000 mcg IM [id number] cyclobenzaprine 10 mg tablet 5 mg PO 3XD PRN (Reason: muscle spasm) nystatin 100,000 unit/mL suspension 5 ml PO QID sucralfate 1 gram tablet 1 g PO QID PRN esomeprazole magnesium [Nexium] 40 mg capsule,delayed release(DR/EC) 40 mg PO BID ondansetron 4 mg tablet,disintegrating 4 mg PO Q8H PRN (Reason: nausea) Flintstones Complete (iron) Tablet,Chewable 1 tab PO DAILY Rx Instructions: administer with a meal magnesium 250 mg tablet 500 mg PO DAILY naloxone 4 mg/actuation spray,non-aerosol 1 spray intranasal Q2-3M PRN Rx Instructions: spray 1 dose into ONE nostril; alternate nostrils w each dose until help arrives cholecalciferol (vitamin D3) 25 mcg (1,000 unit) tablet 2,000 unit PO DAILY cranberry 400 mg capsule 400 mg PO HS Rx Instructions: administer with a meal Culturelle 10 billion cell capsule 1 cap PO DAILY fluticasone propionate [24 Hour Allergy Relief] 50 mcg/actuation spray,suspension 1 spray intranasal DAILY PRN Rx Instructions: administer into each nostril bisacodyl 5 mg tablet 5 - 15 mg PO BID diclofenac sodium [Voltaren Arthritis Pain] 1 % gel 2 - 4 g topical QID PRN Magic Mouthwash (Lidocaine/Benadryl/Maalox) 120 mL suspension PO PRN Qty: 120 lidocaine [Lidoderm] 5 % Adhesive Patch,Medicated 1 patch transdermal DAILY Qty: 30 0RF Rx Instructions: apply over most painful area (up to three patches at a time, may cut to fit) x 12 hours, remove for 12 hours prednisone 20 mg tablet 40 mg PO DAILYWM Qty: 8 0RF Rx Instructions: take 40mg morning of 12/29/22 with food, then 20mg (1 tab) for 4 days, then 10mg (1/2 tab) for 4 days. Dose in the morning with food. azithromycin 250 mg tablet 250 mg PO DIRECTED Qty: 6 0RF Rx Instructions: 500mg tonight with snack, 250mg in the morning for the next 4 mornings with food. Follow Up/Referrals: Provider,Not a Local [Primary Care Provider] -
[2023-05-14 19:21] LABS: Basophils Absolute Auto 0.02 K/uL (0.00-0.30); Basophils Percent Auto 0.2 % (0.0-3.0); Eosinophils Absolute Auto 0.07 K/uL (0.00-0.50); Eosinophils Percent Auto 0.7 % (0.0-7.0); Immature Granulocytes Abs Auto 0.07 K/uL (0.00-0.30); Immature Granulocytes Pct Auto 0.7 %; Lymphocytes Percent Auto 17.7 % (20-44); Mean Corpuscular HGB Conc 31 gm/dL (32-36); Mean Corpuscular Hemoglobin 26 pg (26-34); Mean Corpuscular Volume 85 fL (80-100); Neutrophils Percent Auto 73.7 % (42.0-72.0); Platelet Count* 225 K/uL (140-440); Red Blood Count 4.26 m/uL (4.00-5.20); White Blood Count* 9.61 K/uL (4.50-11.00)
[2023-05-14 19:23] LABS: Slide Review Reflex No
[2023-05-14] MEDS: 0.9 % SODIUM CHLORIDE 1000 ml 1,000 ML IV (19:27)
[2023-05-14] MEDS: ONDANSETRON 2 MG/ML inj 4 MG IVP (19:31)
[2023-05-14 19:37] LABS: Albumin* 4.6 g/dL (3.3-5.0); Chloride* 95 mmol/L (96-114)
[2023-05-14 19:38] LABS: Potassium* 3.8 mmol/L (3.6-5.1); Sodium* 131 mmol/L (135-149)
[2023-05-14 19:40] LABS: Alanine Aminotransferase* 19 U/L (4-35); Alkaline Phosphatase* 79 U/L (40-150); Anion Gap 5 mEq/L (7-15); Aspartate Amino Transferase* 36 U/L (12-35); Bilirubin Total* 0.4 mg/dL (0.1-1.5); Blood Urea Nitrogen* 11 mg/dL (7-30); Carbon Dioxide* 31 mmol/L (20-32); Creatinine* 0.7 mg/dL (0.5-1.5); Est. Creatinine Clearance* 52.05; Estimated Glomerular Filt Rate 92 ml/min; Glucose* 140 mg/dL (60-115); Lipase* 35 U/L (23-300); Total Protein* 7.8 g/dL (6.0-8.3)
[2023-05-14 19:41] LABS: Calcium* 8.7 mg/dL (8.4-10.6)
[2023-05-14 19:55] LABS: Troponin I* < 0.01 ng/mL (0.01-0.04)
[2023-05-14 20:54] LABS: PCR FLU A Negative PCR FLU A (Negative); PCR FLU B Negative PCR FLU B (Negative); PCR RSV Negative PCR RSV (Negative)
[2023-05-14 20:57] LABS: SARS PCR* Negative SARS-CoV-2 (Negative)
[2023-05-14 21:33] LABS: Appearance Urine Clear (Clear); Bilirubin Urine Negative (Negative); Blood Urine Negative (Negative); Color Urine Yellow (Yellow); Glucose Urine Negative (Negative); Ketones Urine Negative (Negative); Leukocyte Esterase Urine Trace (Negative); Nitrite Urine Negative (Negative); Protein Urine Negative (Negative); Specific Gravity Urine 1.015 (1.000-1.030); Urobilinogen Urine 0.2 (0.2-1.0); pH Urine 7.5 (5.0-8.5)
[2023-05-14 21:41] LABS: Bacteria Urine Few; RBC Urine 0-2 (0-2); Squamous Epithelial Cell Urine Few (None-Few)
[2023-05-14] MEDS: cefTRIAXone 1 GM in 0.9 % SODIUM CHLORIDE Mini-bag 100 ML IVPB (22:17)
[2023-05-14] MEDS: AZITHROMYCIN 500 MG in 0.9 % SODIUM CHLORIDE 250 ml 250 ML 255 MG IVPB (22:42)
[2023-05-14] MEDS: METHYLPREDNISOLONE SOD SUCC 62.5 MG/ML (125) 125 MG IVP (22:42)
[2023-05-14 23:57] VITALS: BP 152/94; PULSE 78; RESP 16; O2SAT 93
[2023-05-15] MEDS: hydrOXYzine pamoate 25 MG CAPSULE PO (00:09)
[2023-05-15] MEDS: LACTATED RINGERS 1000 ML 125 ML IV (00:10)
[2023-05-15] MEDS: OXYCODONE 5 MG TABLET 10 MG PO (01:20)
[2023-05-15] MEDS: IPRAT-ALBUT 0.5-2.5 MG/3 ML NEB 1 NEB IH (01:20)
--- NOTE | 2023-05-15 01:43 | ED.NURSE ---
patient handed off to EMS. Orly lentz [facility] arthur updated that patient is on her way to the facility. Patients power wheelchair left in the ED for the to pickup.
== END 2023-05-15 02:08 | disposition short-term general hospital (02) ==
PROVIDERS: Emergency Provider Emergency Medicine
DX: K91.30 Postprocedural intestinal obstruction, unspecified as to partial versus complete (principal); J18.9 Pneumonia, unspecified organism; N39.0 Urinary tract infection, site not specified; Y83.8 Other surgical procedures as the cause of abnormal reaction of the patient, or of later complication, without mention of misadventure at the time of the procedure
CPT/HCPCS: 36415; 71275; 74177; 80048; 80053; 81001; 83605; 83690; 84484; 85025; 87040; 87086; 87631; 93005; 94640; 96365; 96367; 96375; 99284; 99285; A9270; J0456; J0696; J2405; J2930; J7030; J7050; J7120; Q9967

== ENCOUNTER 2023-05-15 01:23 | Outpatient (CLI) | payer MEDICARE, BC, SELFPAY | END 2023-05-15 01:24 | disposition home or self-care (01) | LOC: AMB 05-17 10:53 | PROVIDERS: Visit Provider Family Medicine | DX: K56.609 Unspecified intestinal obstruction, unspecified as to partial versus complete obstruction (principal) | CPT/HCPCS: A0425; A0426 ==